=== PATIENT | male | born 1950 | race Caucasian/White ===

== ENCOUNTER 2020-11-04 08:07 | Emergency (ER) | payer MEDICARE, MEDICAID ==
[~2020-11-04] VITALS: Ht 170 cm; Wt 87.5 kg
[~2020-11-04 08:07] MED LIST: ARPZ10T; DCS100C; FLUO20CA42; FNST5T; GEMF600T3; MAGN-47; OLAN15TA3; TMSL.4C
--- NOTE | 2020-11-04 08:43 | ED Abdominal Pain ---
General Chief Complaint: Abdominal/GI Problems Stated Complaint: ABD PAIN/DISTENED,WEAKNESS Nursing Triage Note: pt presents to ed via pov accompanied by staff for complaints of increased gen weakness and abdominal pain, and abdominal distention. Source of Information: Patient, Caregiver, Old Records Exam Limitations: No Limitations History of Present Illness Date Seen by Provider: Nov 04, 2020 Time Seen by Provider: 08:15 Initial Comments This 70-year-old gentleman is a client of [employer] and presents with a staff member with chief complaint of abdominal pain and distention. Symptoms have been present for 1 to 2 days. He normally has a bowel movement daily but did not have 1 last night. He complains of pain in the lower abdomen. He has communication deficits due to his intellectual disability. There has been no vomiting, diarrhea, fever, respiratory complaints, etc. He has been vaccinated for COVID-19 and staff has no concerns about potential Covid infection. He does have a history of urinary hesitancy and constipation. Staff reports he seemed disoriented upon waking this morning. He normally does not communicate conversationally due to his intellectual disabilities and would not be able to report a reliable history even when feeling well according to staff. Allergies and Home Medications Allergies Coded Allergies: ibuprofen (Unverified Allergy, Mild, 06/04/09) Patient Home Medication List Home Medication List Reviewed: Yes Aripiprazole (Abilify 10 Mg) 10 Mg Tab, (Reported) Entered as Reported by: TEJINDER IRAHETA on 06/04/092011 Docusate Sodium (Colace) 100 Mg Capsule, (Reported) Entered as Reported by: TEJINDER IRAHETA on 06/04/092012 Finasteride (Proscar) 5 Mg Tab, (Reported) Entered as Reported by: TEJINDER IRAHETA on 06/04/092010 Fluoxetine Hcl (Prozac) 20 Mg Capsule, (Reported) Entered as Reported by: TEJINDER IRAHETA on 06/04/092012 Gemfibrozil (Gemfibrozil) 600 Mg Tablet, (Reported) Entered as Reported by: TEJINDER IRAHETA on 06/04/092012 Magnesium Hydroxide (Milk Of Magnesia) 400 Mg/5 Ml Oral.susp, (Reported) Entered as Reported by: TEJINDER IRAHETA on 06/04/092013 Olanzapine (Zyprexa) 15 Mg Tablet, (Reported) Entered as Reported by: TEJINDER IRAHETA on 06/04/092011 Tamsulosin Hcl (Flomax) 0.4 Mg Cap, (Reported) Entered as Reported by: TEJINDER IRAHETA on 06/04/092011 Review of Systems Review of Systems Constitutional: no symptoms reported EENTM: No Symptoms Reported Respiratory: No Symptoms Reported Cardiovascular: No Symptoms Reported Gastrointestinal: See HPI Genitourinary: See HPI Musculoskeletal: no symptoms reported Skin: no symptoms reported Psychiatric/Neurological: See HPI Endocrine: No Symptoms Reported Hematologic/Lymphatic: No Symptoms Reported Past Hmqekhx-Oghwzm-Djstyp Hx Patient Social History Tobacco Use?: No Substance use?: No Alcohol Use?: No Pt feels they are or have been: No Immunizations Up To Date Second COVID19 Vaccination Kvng: may 06 COVID19 Vaccine Value Advisor: malik Past Medical History Surgery/Hospitalization HX: pmh:urine retention, high chol, depression, anxiety, Surgeries: No Respiratory: No Cardiac: Yes High Cholesterol Neurological: Yes (Intellectual disability) Developmental Disorder Genitourinary: Yes (Urinary retention) Gastrointestinal: No Musculoskeletal: No Endocrine: No HEENT: No Cancer: No Did You Recieve Any Treatments: No Psychosocial: Yes Sleep Difficulties, Anxiety, Depression Integumentary: No Physical Exam Vital Signs Vital Signs - First Documented 11/04/20 08:16 Temp 36.0 Pulse 85 Resp 18 B/P (MAP) 157/90 (112) Pulse Ox 95 Capillary Refill : Less Than 3 Seconds Height/Weight/BMI Height: '" Weight: lbs. oz. kg; 30.00 BMI Method:Stated General Appearance: WD/WN, mild distress, other (Lying still on the bed. Avoiding interaction. Alert. No active distress) HEENT: normal ENT inspection, other (Would not open mouth for exam) Neck: normal inspection Respiratory: lungs clear, normal breath sounds, no respiratory distress Cardiovascular: regular rate, rhythm, no edema, no murmur Gastrointestinal: normal bowel sounds, distended (Slightly firm); No guarding; tenderness (Lower abdomen) Extremities: normal inspection, no pedal edema Neurologic/Psychiatric: supervisor of guidance and testing II-XII nml as tested, no motor/sensory deficits, alert Skin: normal color, warm/dry Progress/Results/Core Measures Results/Orders Lab Results Laboratory Tests Test 11/04/20 08:04 11/04/20 08:17 11/04/20 09:05 Range/Units Sodium Level 144 135-145 MMOL/L Potassium Level 4.0 3.6-5.0 MMOL/L Chloride Level 110 H 98-107 MMOL/L Carbon Dioxide Level 19 L 21-32 MMOL/L Anion Gap 15 H 5-14 MMOL/L Blood Urea Nitrogen 15 7-18 MG/DL Creatinine 0.95 0.60-1.30 MG/DL Estimat Glomerular Filtration Rate 79 BUN/Creatinine Ratio 16 Glucose Level 107 H 70-105 MG/DL Calcium Level 9.5 8.5-10.1 MG/DL Corrected Calcium 9.3 8.5-10.1 MG/DL Total Bilirubin 0.4 0.1-1.0 MG/DL Aspartate Amino Transf (AST/SGOT) 19 5-34 U/L Alanine Aminotransferase (ALT/SGPT) 20 0-55 U/L Alkaline Phosphatase 77 40-136 U/L C-Reactive Protein High Sensitivity 0.50 0.00-0.50 MG/DL Total Protein 7.7 6.4-8.2 GM/DL Albumin 4.3 3.2-4.5 GM/DL Lipase 45 8-78 U/L White Blood Count 8.3 4.3-11.0 10^3/uL Red Blood Count 5.10 4.30-5.52 10^6/uL Hemoglobin 14.0 13.3-17.7 g/dL Hematocrit 45 40-54 % Mean Corpuscular Volume 89 80-99 fL Mean Corpuscular Hemoglobin 28 25-34 pg Mean Corpuscular Hemoglobin Concent 31 L 32-36 g/dL Red Cell Distribution Width 15.1 H 10.0-14.5 % Platelet Count 262 130-400 10^3/uL Mean Platelet Volume 9.3 9.0-12.2 fL Immature Granulocyte % (Auto) 1 % Neutrophils (%) (Auto) 73 42-75 % Lymphocytes (%) (Auto) 19 12-44 % Monocytes (%) (Auto) 5 0-12 % Eosinophils (%) (Auto) 2 0-10 % Basophils (%) (Auto) 1 0-10 % Neutrophils # (Auto) 6.0 1.8-7.8 10^3/uL Lymphocytes # (Auto) 1.6 1.0-4.0 10^3/uL Monocytes # (Auto) 0.4 0.0-1.0 10^3/uL Eosinophils # (Auto) 0.2 0.0-0.3 10^3/uL Basophils # (Auto) 0.1 0.0-0.1 10^3/uL Immature Granulocyte # (Auto) 0.0 0.0-0.1 10^3/uL Urine Color YELLOW Urine Clarity CLEAR Urine pH 6.0 5-9 Urine Specific Lyons >=1.030 1.016-1.022 Urine Protein NEGATIVE NEGATIVE Urine Glucose (UA) NEGATIVE NEGATIVE Urine Ketones NEGATIVE NEGATIVE Urine Nitrite NEGATIVE NEGATIVE Urine Bilirubin NEGATIVE NEGATIVE Urine Urobilinogen 0.2 < = 1.0 MG/DL Urine Leukocyte Esterase NEGATIVE NEGATIVE Urine RBC (Auto) NEGATIVE NEGATIVE Urine RBC NONE /HPF Urine WBC NONE /HPF Urine Squamous Epithelial Cells RARE /HPF Urine Crystals NONE /LPF Urine Bacteria NEGATIVE /HPF Urine Casts NONE /LPF Urine Mucus NEGATIVE /LPF Urine Culture Indicated NO My Orders Orders - VICKY MCFARLAND MD Ua Culture If Indicated (11/04/20 08:35) Bladder Scan (11/04/20 08:35) Cbc With Automated Diff (11/04/20 08:45) Comprehensive Metabolic Panel (11/04/20 08:45) Hs C Reactive Protein (11/04/20 08:45) Lipase (11/04/20 08:45) Ed Iv/Invasive Line Start (11/04/20 08:45) Ns Iv 1000 Ml (Sodium Chloride 0.9%) (11/04/20 09:30) Ct Abdomen/Pelvis W (11/04/20 09:26) Iohexol Injection (Omnipaque 350 Mg/Ml 1 (11/04/20 09:45) Received Contrast (Hold Metformin- Contr (11/04/20 09:45) Ns (Ivpb) (Sodium Chloride 0.9% Ivpb Bag (11/04/20 09:45) Ct Abdomen/Pelvis Wo (11/04/20 11:43) Diatrizoate Meglum/Sodium 37% (Gastrogra (11/04/20 12:45) Fentanyl Inj (Sublimaze Injection) (11/04/20 14:45) Fentanyl Inj (Sublimaze Injection) (11/04/20 17:15) Medications Given in ED Current Medications Medications Dose Ordered Sig/Lauren Route Start Time Stop Time Status Last Admin Dose Admin Diatrizoate Meglum/ Diatrizoate Sod 120 ml ONCE ONCE RC 11/04/20 12:45 11/04/20 12:46 DC 11/04/20 12:54 30 ML Fentanyl Citrate 50 mcg ONCE ONCE IVP 11/04/20 14:45 11/04/20 14:46 DC 11/04/20 15:47 50 MCG Fentanyl Citrate 50 mcg ONCE ONCE IVP 11/04/20 17:15 11/04/20 17:16 DC 11/04/20 17:34 50 MCG Iohexol 100 ml ONCE ONCE IV 11/04/20 09:45 11/04/20 09:51 DC 11/04/20 10:22 100 ML Sodium Chloride 100 ml ONCE ONCE IV 11/04/20 09:45 11/04/20 09:51 DC 11/04/20 10:22 80 ML Vital Signs/I&O 11/04/20 11/04/20 08:16 17:50 Temp 36.0 Pulse 85 95 Resp 18 16 B/P (MAP) 157/90 (112) 145/80 Pulse Ox 95 98 Blood Pressure Mean: 112 Progress Progress Note #1: Time: 08:44 Progress Note Bladder scan revealed only 65 mL of urine. He does not appear to be experiencing urinary retention. We will proceed with abdominal pain work-up with labs and probable imaging. Progress Note #2: Time: 16:[address] scan demonstrated an unusual appearance to the sigmoid colon with spasm or narrowing and extension of the sigmoid colon into the right upper quadrant. I discussed the situation with Dr. Dunn (Dr. Quezada was not immediately available). I also discussed the imaging results with Dr. Alicia. We determined there should be further evaluation with repeat CT scan with rectal contrast. This was obtained and showed a patent sigmoid colon with no obstruction or volvulus. The sigmoid change position medially as well. We were attempting to discharge the patient but he would not get up and walk. He simply falls back over in pain when he attempts to stand up. He complains of mid abdominal pain. He was treated with fentanyl and again we attempted to stand him up. His response was unchanged. At this point we will admit for supportive care and bowel regimen. Transfer to [facility] to divert away from Covid patients to a lower acuity facility is appropriate. [facility] staff are agreeable to this plan. Dr. Quezada and Dr. Blackmon are agreeable. Diagnostic Imaging Diagonstic Imaging: CT Plain Films/CT/US/NM/MRI: abdomen, pelvis Comments CT scan reviewed by me and report reviewed. Discussed with the radiologist. See report below: NAME: EVANS VINSON [facility] REC#: [id number] PT STATUS: REG ER : 1950 PHYSICIAN: VICKY MCFARLAND MD ADMIT DATE: 11/04/20/ER Signed Date of Exam:11/04/20 CT ABDOMEN/PELVIS W PROCEDURE: CT abdomen and pelvis with contrast. TECHNIQUE: Multiple contiguous axial images were obtained through the abdomen and pelvis after administration of intravenous contrast. Auto Exposure Controls were utilized during the CT exam to meet ALARA standards for radiation dose reduction. All CT scans use one or more of the following dose optimizing techniques: automated exposure control, MA and/or KvP adjustment based on patient size and exam type or iterative reconstruction. INDICATION: Increasing weakness and abdominal pain and distention. COMPARISON: No prior studies are available for comparison. FINDINGS: Lung bases are clear. No discrete liver mass is detected. Gallbladder is unremarkable. There is no biliary ductal dilatation. Pancreas and spleen are unremarkable. No adrenal mass is detected. Kidneys are unremarkable. Aorta is nonaneurysmal. The sigmoid does show some gaseous distention and is located in the right upper quadrant however no definite twisting or swirling of the mesentery is seen to suggest volvulus. No bowel wall thickening is seen. There is moderate stool in the colon. Small bowel is nondistended. There is no ascites or fluid collection. There is no free air. The bladder is decompressed by Cotter catheter. There is a left inguinal fat-containing hernia. IMPRESSION: There is some distention of the sigmoid which is located in the right upper quadrant. No definite CT evidence of sigmoid volvulus is seen. There is moderate stool, consistent with constipation. Dictated by: Dictated on workstation # [id number] Dict: 11/04/20 1031 Trans: 11/04/20 1537 [id number] [id number] Interpreted by: BRAULIO ALICIA MD Electronically signed by: BRAULIO ALICIA MD 11/04/20 1537 Diagonstic Imaging: CT Plain Films/CT/US/NM/MRI: abdomen, pelvis Comments CT abdomen and pelvis with rectal contrast viewed by me and report reviewed. See report below: NAME: EVANS VINSON [facility] REC#: [id number] PT STATUS: REG ER : 1950 PHYSICIAN: VICKY MCFARLAND MD ADMIT DATE: 11/04/20/ER Signed Date of Exam:11/04/20 CT ABDOMEN/PELVIS WO PROCEDURE: CT abdomen and pelvis without contrast. TECHNIQUE: Multiple contiguous axial images were obtained through the abdomen and pelvis without the use of intravenous contrast. Auto Exposure Controls were utilized during the CT exam to meet ALARA standards for radiation dose reduction. INDICATION: Questionable sigmoid narrowing. Study is performed for further evaluation. COMPARISON: Correlation is made with CT study performed earlier the same day. FINDINGS: The rectum and sigmoid appear to be widely patent. There is significant redundancy to the sigmoid, which is located in the upper abdomen but no definite bowel wall thickening or evidence of volvulus is seen. The more proximal portion of the sigmoid colon near the junction with the descending colon is completely decompressed. There is no evidence of dilatation proximal to the dilated sigmoid segments. No pneumatosis is seen. The ascending, transverse, and descending colon are normal in caliber. The small bowel is normal in caliber as well. There is no free fluid. There is no free air. Liver, gallbladder, pancreas, spleen, adrenal glands, and kidneys are stable. Aorta is nonaneurysmal. IMPRESSION: Dilated and redundant sigmoid colon, located in the upper abdomen. No volvulus is detected. Dictated by: Dictated on workstation # [id number] Dict: 11/04/20 1253 Trans: 11/04/20 1537 AS6 [id number] Interpreted by: BRAULIO ALICIA MD Electronically signed by: BRAULIO ALICIA MD 11/04/20 1537 Departure Impression Primary Impression: Constipation Qualified Codes: K59.00 - Constipation, unspecified Additional Impressions: Colon distention Abdominal pain Qualified Codes: R10.84 - Generalized abdominal pain Disposition: [facility] HOSP Condition: Stable Transfer Transfer Reason: Diversion Time Spoke to Accepting Phy: 16:40 Transfer Time: 17:50 Transfer Facility: [facility] Method of Transfer: Private Vehicle Departure-Patient Inst. Referrals: WADE ALEJANDRO DO (PCP/Family) Primary Care Physician Copy Copies To 1: WADE ALEJANDRO JOSHUA T MD Nov 04, 2020 08:43
[2020-11-04 09:06] LABS: BASOPHILS # (AUTO) 0.1 10^3/uL (0.0-0.1); BASOPHILS % (AUTO) 1 % (0-10); EOSINOPHILS # (AUTO) 0.2 10^3/uL (0.0-0.3); EOSINOPHILS % (AUTO) 2 % (0-10); HEMATOCRIT 45 % (40-54); LYMPHOCYTES # (AUTO) 1.6 10^3/uL (1.0-4.0); LYMPHOCYTES % (AUTO) 19 % (12-44); MEAN CORPUSCULAR HEMOGLOBIN 28 pg (25-34); MEAN CORPUSCULAR HGB CONC 31 g/dL (32-36); MEAN CORPUSCULAR VOLUME 89 fL (80-99); MEAN PLATELET VOLUME 9.3 fL (9.0-12.2); MONOCYTES # (AUTO) 0.4 10^3/uL (0.0-1.0); MONOCYTES % (AUTO) 5 % (0-12); NEUTROPHILS % (AUTO) 73 % (42-75); PLATELET COUNT 262 10^3/uL (130-400); WHITE BLOOD COUNT 8.3 10^3/uL (4.3-11.0)
[2020-11-04 09:10] LABS: ALBUMIN 4.3 GM/DL (3.2-4.5)
[2020-11-04 09:12] LABS: CALCIUM 9.5 MG/DL (8.5-10.1)
[2020-11-04 09:13] LABS: TOTAL PROTEIN 7.7 GM/DL (6.4-8.2)
[2020-11-04 09:15] LABS: BILIRUBIN,TOTAL 0.4 MG/DL (0.1-1.0)
[2020-11-04 09:17] LABS: CREATININE SERUM 0.95 MG/DL (0.60-1.30)
[2020-11-04] MEDS ORDERED: NS IV 1000 ML 1,000 ML IV SCH (09:30)
[2020-11-04] MEDS ORDERED: NS 100 ML (IVPB) BAG IV ONE (09:45)
[2020-11-04] MEDS ORDERED: HOLD METFORMIN - RECEIVED CONTRAST 20 ML VIAL IV SCH (09:45)
[2020-11-04] MEDS ORDERED: IOHEXOL 350 MG/ML 100 ML (OMNIPAQUE 350) VIAL IV ONE (09:45)
[2020-11-04 09:50] LABS: BILIRUBIN,URINE NEGATIVE (NEGATIVE); CLARITY,URINE CLEAR; COLOR,URINE YELLOW; GLUCOSE, URINE (UA) NEGATIVE (NEGATIVE); KETONES,URINE NEGATIVE (NEGATIVE); LEUKOCYTE ESTERASE ,URINE NEGATIVE (NEGATIVE); NITRITE,URINE NEGATIVE (NEGATIVE); PROTEIN,URINE NEGATIVE (NEGATIVE)
[2020-11-04 09:57] LABS: BACTERIA,URINE NEGATIVE /HPF; SQUAMOUS EPITHELIAL CELL,UR RARE /HPF
--- NOTE | 2020-11-04 10:43 | Diagnostic Imaging Report ---
PROCEDURE: CT abdomen and pelvis with contrast. TECHNIQUE: Multiple contiguous axial images were obtained through the abdomen and pelvis after administration of intravenous contrast. Auto Exposure Controls were utilized during the CT exam to meet ALARA standards for radiation dose reduction. All CT scans use one or more of the following dose optimizing techniques: automated exposure control, MA and/or KvP adjustment based on patient size and exam type or iterative reconstruction. INDICATION: Increasing weakness and abdominal pain and distention. COMPARISON: No prior studies are available for comparison. FINDINGS: Lung bases are clear. No discrete liver mass is detected. Gallbladder is unremarkable. There is no biliary ductal dilatation. Pancreas and spleen are unremarkable. No adrenal mass is detected. Kidneys are unremarkable. Aorta is nonaneurysmal. The sigmoid does show some gaseous distention and is located in the right upper quadrant however no definite twisting or swirling of the mesentery is seen to suggest volvulus. No bowel wall thickening is seen. There is moderate stool in the colon. Small bowel is nondistended. There is no ascites or fluid collection. There is no free air. The bladder is decompressed by Cotter catheter. There is a left inguinal fat-containing hernia. IMPRESSION: There is some distention of the sigmoid which is located in the right upper quadrant. No definite CT evidence of sigmoid volvulus is seen. There is moderate stool, consistent with constipation. Dictated by: Dictated on workstation # [id number]
[2020-11-04] MEDS ORDERED: DIATRIZOATE MEGLUM/SODIUM 37% 120 ML (GASTROGRAFIN) RC ONE (12:45)
--- NOTE | 2020-11-04 13:38 | Diagnostic Imaging Report ---
PROCEDURE: CT abdomen and pelvis without contrast. TECHNIQUE: Multiple contiguous axial images were obtained through the abdomen and pelvis without the use of intravenous contrast. Auto Exposure Controls were utilized during the CT exam to meet ALARA standards for radiation dose reduction. INDICATION: Questionable sigmoid narrowing. Study is performed for further evaluation. COMPARISON: Correlation is made with CT study performed earlier the same day. FINDINGS: The rectum and sigmoid appear to be widely patent. There is significant redundancy to the sigmoid, which is located in the upper abdomen but no definite bowel wall thickening or evidence of volvulus is seen. The more proximal portion of the sigmoid colon near the junction with the descending colon is completely decompressed. There is no evidence of dilatation proximal to the dilated sigmoid segments. No pneumatosis is seen. The ascending, transverse, and descending colon are normal in caliber. The small bowel is normal in caliber as well. There is no free fluid. There is no free air. Liver, gallbladder, pancreas, spleen, adrenal glands, and kidneys are stable. Aorta is nonaneurysmal. IMPRESSION: Dilated and redundant sigmoid colon, located in the upper abdomen. No volvulus is detected. Dictated by: Dictated on workstation # [id number]
[2020-11-04] MEDS ORDERED: fentaNYL INJ 100 MCG/2 ML AMP IVP ONE ×2 (14:45→17:15)
[2020-11-04 17:50] VITALS: BP 145/80
== END 2020-11-04 17:50 | disposition short-term general hospital (02) ==
LOC: EDUNIT# 08:07 → ER 08:10
DX: K59.00 Constipation, unspecified (principal); K63.89 Other specified diseases of intestine; E78.00 Pure hypercholesterolemia, unspecified; F41.9 Anxiety disorder, unspecified; F32.9 Major depressive disorder, single episode, unspecified; Z79.899 Other long term (current) drug therapy
CPT/HCPCS: 36415; 74176; 74177; 80053; 81000; 83690; 85025; 86141; 96361; 96374; 96376

== ENCOUNTER → 2020-11-24 | Outpatient (CLI) | payer MEDICARE, MEDICAID ==
--- NOTE | 2020-11-24 13:52 | Diagnostic Imaging Report ---
INDICATION: Back and hip pain. COMPARISON: None. FINDINGS: AP view of the pelvis and 2 dedicated radiographic views of the left hip were obtained. There is no fracture, dislocation, bone destruction, or radiopaque foreign body. Note is made of benign-appearing bone island in the junction of the left femoral head and neck The visualized pelvic osseous structures and the SI joints demonstrate no acute fracture or dislocation. There is no bone destruction or radiopaque foreign body. The surrounding soft tissue structures are unremarkable. IMPRESSION: 1. No acute fracture or dislocation in the pelvis or left hip. Dictated by: Dictated on workstation # [id number]
== END ==
LOC: RAD 12:01
PROVIDERS: ATTEND Family Medicine
DX: M25.552 Pain in left hip (principal)

== ENCOUNTER 2020-12-07 09:24 | Outpatient (RCR) | payer MEDICARE, MEDICAID | END 2021-01-05 11:20 | disposition home or self-care (01) | PROVIDERS: ATTEND Family Medicine | DX: R26.2 Difficulty in walking, not elsewhere classified (principal); R53.1 Weakness; R53.83 Other fatigue ==

== ENCOUNTER 2021-05-17 11:17 | Observation (INO) | payer MEDICARE, MEDICAID ==
[~2021-05-17] VITALS: Ht 170.2 cm; Wt 83.6 kg
[2021-05-17 11:58] LABS: BASOPHILS # (AUTO) 0.1 10^3/uL (0.0-0.1); BASOPHILS % (AUTO) 1 % (0-10); EOSINOPHILS # (AUTO) 0.2 10^3/uL (0.0-0.3); EOSINOPHILS % (AUTO) 3 % (0-10); HEMATOCRIT 41 % (40-54); LYMPHOCYTES # (AUTO) 1.3 10^3/uL (1.0-4.0); LYMPHOCYTES % (AUTO) 20 % (12-44); MEAN CORPUSCULAR HEMOGLOBIN 27 pg (25-34); MEAN CORPUSCULAR HGB CONC 32 g/dL (32-36); MEAN CORPUSCULAR VOLUME 86 fL (80-99); MEAN PLATELET VOLUME 9.3 fL (9.0-12.2); MONOCYTES # (AUTO) 0.3 10^3/uL (0.0-1.0); MONOCYTES % (AUTO) 5 % (0-12); NEUTROPHILS # (AUTO) 4.5 10^3/uL (1.8-7.8); NEUTROPHILS % (AUTO) 71 % (42-75); PLATELET COUNT 242 10^3/uL (130-400); WHITE BLOOD COUNT 6.4 10^3/uL (4.3-11.0)
[2021-05-17 12:08] LABS: ALBUMIN 3.9 GM/DL (3.2-4.5); POTASSIUM 4.3 MMOL/L (3.6-5.0)
[2021-05-17 12:10] LABS: CALCIUM 9.3 MG/DL (8.5-10.1)
[2021-05-17 12:11] LABS: TOTAL PROTEIN 6.7 GM/DL (6.4-8.2)
[2021-05-17 12:12] LABS: BILIRUBIN,TOTAL 0.6 MG/DL (0.1-1.0)
[2021-05-17 12:14] LABS: CREATININE SERUM 0.83 MG/DL (0.60-1.30)
--- NOTE | 2021-05-17 12:17 | ED General ---
General Chief Complaint: Altered Mental Status Stated Complaint: AMS Nursing Triage Note: PT AMB TO [facility] 6 WITH COMPLAINT OF ALT MENTAL STATUS. WENT TO DR TORREZ AND WAS SENT TO ER FOR FURTHER EVALUATION. Source of Information: Patient, Caregiver, Old Records Exam Limitations: No Limitations History of Present Illness Date Seen by Provider: May 17, 2021 Time Seen by Provider: 11:20 Initial Comments This is 71-year-old gentleman is a client of [place] he was brought to the emergency room by a staff member for reasons of altered mental status and apparent lethargy. He is normally verbal but cannot communicate in discernible language. Today he has been minimally verbal. He is also normally active and today has been minimally active. He is not following instructions for this provider which staff says is unusual for him. It is unclear if he is in any pain. He has been ambulatory this morning and walked to the exam room. Staff reports he may be listing a little bit when he walks but is able to walk independently. Review of his medical record notes that his dose of clonazepam was recently increased from 0.5 mg to 1 mg on May 01. It is also noted that he takes olanzapine and or aripiprazole. Doses of those 2 medications have not changed. Staff also notes he has a history of urinary retention. Allergies and Home Medications Allergies Coded Allergies: ibuprofen (Unverified Allergy, Mild, 06/04/09) Patient Home Medication List Home Medication List Reviewed: Yes Aripiprazole (Abilify 10 Mg) 10 Mg Tab, (Reported) Entered as Reported by: TEJINDER IRAHETA on 06/04/092011 Docusate Sodium (Colace) 100 Mg Capsule, (Reported) Entered as Reported by: TEJINDER IRAHETA on 06/04/092012 Finasteride (Proscar) 5 Mg Tab, (Reported) Entered as Reported by: TEJINDER IRAHETA on 06/04/092010 Fluoxetine Hcl (Prozac) 20 Mg Capsule, (Reported) Entered as Reported by: TEJINDER IRAHETA on 06/04/092012 Gemfibrozil (Gemfibrozil) 600 Mg Tablet, (Reported) Entered as Reported by: TEJINDER IRAHETA on 06/04/092012 Magnesium Hydroxide (Milk Of Magnesia) 400 Mg/5 Ml Oral.susp, (Reported) Entered as Reported by: TEJINDER IRAHETA on 06/04/092013 Olanzapine (Zyprexa) 15 Mg Tablet, (Reported) Entered as Reported by: TEJINDER IRAHETA on 06/04/092011 Tamsulosin Hcl (Flomax) 0.4 Mg Cap, (Reported) Entered as Reported by: TEJINDER IRAHETA on 06/04/092011 Review of Systems Review of Systems Constitutional: see HPI EENTM: no symptoms reported Respiratory: no symptoms reported Cardiovascular: no symptoms reported Gastrointestinal: no symptoms reported Genitourinary: see HPI Musculoskeletal: no symptoms reported Skin: no symptoms reported Psychiatric/Neurological: See HPI Hematologic/Lymphatic: No Symptoms Reported Immunological/Allergic: no symptoms reported Past Jodatzy-Ugwczt-Yzkrsy Hx Patient Social History Tobacco Use?: No Use of E-Cig and/or Vaping dev: No Substance use?: No Alcohol Use?: No Pt feels they are or have been: No Immunizations Up To Date Influenza Vaccine Up-to-Date: Yes; Up-to-Date First/Initial COVID19 Vaccinat: may 06 COVID19 Vaccination Kvng: may 06 COVID19 Vaccination Date: may 06 Past Medical History Surgery/Hospitalization HX: pmh:urine retention, high chol, depression, anxiety, Surgeries: No Respiratory: No Cardiac: Yes High Cholesterol Neurological: Yes (Intellectual disability) Developmental Disorder Genitourinary: Yes (Urinary retention) Prostate Problems Gastrointestinal: No Musculoskeletal: No Endocrine: Yes Hypothyroidsim HEENT: No Cancer: No Did You Recieve Any Treatments: No Psychosocial: Yes Sleep Difficulties, Anxiety, Depression Integumentary: No Physical Exam Vital Signs Vital Signs - First Documented 05/17/21 11:37 Temp 36.1 Pulse 73 Resp 12 B/P (MAP) 124/79 (94) Pulse Ox 92 O2 Delivery Room Air Capillary Refill : Less Than 3 Seconds Height, Weight, BMI Height: '" Weight: lbs. oz. kg; 30.00 BMI Method:Stated General Appearance: No Apparent Distress, WD/WN, Other (Appears lethargic) HEENT: PERRL/EOMI, TMs Normal (Partially obscured by cerumen, especially on the right), Normal ENT Inspection, Other (Mucous membranes moist) Neck: Normal Inspection Respiratory: Lungs Clear, Normal Breath Sounds, No Accessory Muscle Use Cardiovascular: Regular Rate, Rhythm, No Edema, No Murmur Gastrointestinal: Normal Bowel Sounds, Non Tender, Soft Extremity: Normal Inspection, No Pedal Edema Neurologic/Psychiatric: Alert, Other (Neuro exam is difficult as he does not follow instructions. He appears to be moving all 4 extremities. There is no obvious focal motor deficit. He is not verbalizing other than an occasional moan or groan during my interaction with him.) Skin: Normal Color, Warm/Dry Progress/Results/Core Measures Suspected Sepsis SIRS Temperature: Pulse: 73 Respiratory Rate: 12 Laboratory Tests 05/17/21 11:44: White Blood Count 6.4 Blood Pressure 124 /79 Mean: 94 Laboratory Tests 05/17/21 11:44: Creatinine 0.83, Platelet Count 242, Total Bilirubin 0.6 Results/Orders Lab Results Laboratory Tests Test 05/17/21 11:44 05/17/21 11:49 05/17/21 12:47 Range/Units White Blood Count 6.4 4.3-11.0 10^3/uL Red Blood Count 4.75 4.30-5.52 10^6/uL Hemoglobin 13.0 L 13.3-17.7 g/dL Hematocrit 41 40-54 % Mean Corpuscular Volume 86 80-99 fL Mean Corpuscular Hemoglobin 27 25-34 pg Mean Corpuscular Hemoglobin Concent 32 32-36 g/dL Red Cell Distribution Width 15.0 H 10.0-14.5 % Platelet Count 242 130-400 10^3/uL Mean Platelet Volume 9.3 9.0-12.2 fL Immature Granulocyte % (Auto) 0 % Neutrophils (%) (Auto) 71 42-75 % Lymphocytes (%) (Auto) 20 12-44 % Monocytes (%) (Auto) 5 0-12 % Eosinophils (%) (Auto) 3 0-10 % Basophils (%) (Auto) 1 0-10 % Neutrophils # (Auto) 4.5 1.8-7.8 10^3/uL Lymphocytes # (Auto) 1.3 1.0-4.0 10^3/uL Monocytes # (Auto) 0.3 0.0-1.0 10^3/uL Eosinophils # (Auto) 0.2 0.0-0.3 10^3/uL Basophils # (Auto) 0.1 0.0-0.1 10^3/uL Immature Granulocyte # (Auto) 0.0 0.0-0.1 10^3/uL Sodium Level 137 135-145 MMOL/L Potassium Level 4.3 3.6-5.0 MMOL/L Chloride Level 106 98-107 MMOL/L Carbon Dioxide Level 19 L 21-32 MMOL/L Anion Gap 12 5-14 MMOL/L Blood Urea Nitrogen 13 7-18 MG/DL Creatinine 0.83 0.60-1.30 MG/DL Estimat Glomerular Filtration Rate 94 BUN/Creatinine Ratio 16 Glucose Level 91 70-105 MG/DL Calcium Level 9.3 8.5-10.1 MG/DL Corrected Calcium 9.4 8.5-10.1 MG/DL Total Bilirubin 0.6 0.1-1.0 MG/DL Aspartate Amino Transf (AST/SGOT) 25 5-34 U/L Alanine Aminotransferase (ALT/SGPT) 17 0-55 U/L Alkaline Phosphatase 85 40-136 U/L C-Reactive Protein High Sensitivity 1.10 H 0.00-0.50 MG/DL Total Protein 6.7 6.4-8.2 GM/DL Albumin 3.9 3.2-4.5 GM/DL TSH [place] Testing 1.86 0.35-4.94 UIU/ML Thyroid Stimulating Hormone (TSH) 1.84 0.35-4.94 UIU/ML Free Thyroxine 0.95 0.70-1.48 NG/DL Urine Color YELLOW Urine Clarity SL CLOUDY Urine pH 6.0 5-9 Urine Specific Pierce 1.025 H 1.016-1.022 Urine Protein NEGATIVE NEGATIVE Urine Glucose (UA) NEGATIVE NEGATIVE Urine Ketones NEGATIVE NEGATIVE Urine Nitrite POSITIVE H NEGATIVE Urine Bilirubin NEGATIVE NEGATIVE Urine Urobilinogen 0.2 < = 1.0 MG/DL Urine Leukocyte Esterase TRACE H NEGATIVE Urine RBC (Auto) NEGATIVE NEGATIVE Urine RBC NONE /HPF Urine WBC RARE /HPF Urine Squamous Epithelial Cells NONE /HPF Urine Crystals NONE /LPF Urine Bacteria LARGE H /HPF Urine Casts NONE /LPF Urine Mucus NEGATIVE /LPF Urine Culture Indicated YES My Orders Orders - VICKY MCFARLAND MD Cbc With Automated Diff (05/17/21 11:20) Comprehensive Metabolic Panel (05/17/21 11:20) Hs C Reactive Protein (05/17/21 11:20) Thyroid Analyzer (05/17/21 11:20) Ua Culture If Indicated (05/17/21 11:20) Ed Iv/Invasive Line Start (05/17/21 11:20) Thyroid Stimulating Hormone (05/17/21 11:55) Free T4 (Free Thyroxine) (05/17/21 11:55) Cotter Cath (05/17/21 11:55) Urine Culture (05/17/21 12:47) Ct Head Wo (05/17/21 13:16) Ceftriaxone 1 Gm Pre-Mix (Rocephin 1 Gm (05/17/21 13:58) Vital Signs/I&O 05/17/21 11:37 Temp 36.1 Pulse 73 Resp 12 B/P (MAP) 124/79 (94) Pulse Ox 92 O2 Delivery Room Air Capillary Refill : Less Than 3 Seconds Blood Pressure Mean: 94 Progress Note : Time: 14:10 Progress Note Cotter catheter was inserted to evaluate for urinary retention and obtain a clean urine specimen. There is suspicion of urinary tract infection based on urinalysis. Approximately 1000 mL of urine was drained from the bladder. This would suggest significant urinary retention. Labs were relatively unremarkable. I suspect his altered mental status is multifactorial with contributing factors including urinary retention, urinary tract infection, and medication effect. I discussed the case with Dr. Alejandro who requested that the patient be admitted for observation at least tonight to ensure some stability and hopefully improvement before he goes back to [place]. Staff member with the patient is agreeable to this. Patient has full CODE STATUS on his MAR from [place]. Case was reviewed with Dr. Romeo who is agreeable to admission. Rocephin is being administered before admitting. Diagnostic Imaging Diagonstic Imaging: CT Plain Films/CT/US/NM/MRI: head Comments CT head viewed by me and report reviewed. See report below: NAME: [facility] REC#: [id number] PT STATUS: REG ER : 1950 PHYSICIAN: VICKY MCFARLAND MD ADMIT DATE: 05/17/21/ER Draft Date of Exam:05/17/21 CT HEAD WO PROCEDURE: CT head without contrast. TECHNIQUE: Multiple contiguous axial images were obtained through the brain without the use of intravenous contrast. Auto Exposure Controls were utilized during the CT exam to meet ALARA standards for radiation dose reduction. DATE: May 17, 2021. COMPARISON: None. INDICATION: 71-year-old male, altered mental status. FINDINGS: The ventricles and cerebral spinal fluid spaces are of normal size and configuration for the patient's age. There is no mass effect or midline shift. There is no acute intracranial hemorrhage. There is no abnormal extra-axial fluid collection. The visualized portions of the paranasal sinuses, mastoid air cells and middle ears are well aerated. IMPRESSION: 1. No identified acute intracranial abnormality. Dictated on workstation # [id number] Dict: 05/17/21 1338 Trans: 05/17/21 1344 CV [id number] Interpreted by: SAVANNAH GARCIA MD Departure Communication (Admissions) Time/Spoke to Admitting Phy: 14:10 Dr. Romeo Impression Primary Impression: AMS (altered mental status) Qualified Codes: R41.82 - Altered mental status, unspecified Additional Impressions: Urinary tract infection Qualified Codes: N39.0 - Urinary tract infection, site not specified Urinary retention Disposition: ADMITTED INPATIENT Condition: Stable Admissions Decision to Admit Reason: Admit from ER (General) Decision to Admit/Date: May 17, 2021 Time/Decision to Admit Time: 14:10 Departure-Patient Inst. Referrals: WADE LAEJANDRO DO (PCP/Family) Primary Care Physician VICKY MCFARLAND MD May 17, 2021 12:17
[2021-05-17 12:40] LABS: TSH (THYROID ANALYZER) 1.86 UIU/ML (0.35-4.94)
[2021-05-17 12:58] LABS: BILIRUBIN,URINE NEGATIVE (NEGATIVE); CLARITY,URINE SL CLOUDY; COLOR,URINE YELLOW; GLUCOSE, URINE (UA) NEGATIVE (NEGATIVE); KETONES,URINE NEGATIVE (NEGATIVE); LEUKOCYTE ESTERASE ,URINE TRACE (NEGATIVE); NITRITE,URINE POSITIVE (NEGATIVE); PROTEIN,URINE NEGATIVE (NEGATIVE)
[2021-05-17 13:05] LABS: BACTERIA,URINE LARGE /HPF; WBC,URINE RARE /HPF
[2021-05-17 13:20] LABS: FREE T4 (FREE THYROXINE) 0.95 NG/DL (0.70-1.48)
[2021-05-17] MEDS ORDERED: PROMETHAZINE INJ 25 MG/ML (PHENERGAN) AMP IVP ONE (13:45)
[2021-05-17] MEDS ORDERED: HYDROmorphone 2 MG/ML VIAL (DILAUDID) IV ONE (13:45)
--- NOTE | 2021-05-17 13:45 | Diagnostic Imaging Report ---
PROCEDURE: CT head without contrast. TECHNIQUE: Multiple contiguous axial images were obtained through the brain without the use of intravenous contrast. Auto Exposure Controls were utilized during the CT exam to meet ALARA standards for radiation dose reduction. DATE: May 17, 2021. COMPARISON: None. INDICATION: 71-year-old male, altered mental status. FINDINGS: The ventricles and cerebral spinal fluid spaces are of normal size and configuration for the patient's age. There is no mass effect or midline shift. There is no acute intracranial hemorrhage. There is no abnormal extra-axial fluid collection. The visualized portions of the paranasal sinuses, mastoid air cells and middle ears are well aerated. IMPRESSION: 1. No identified acute intracranial abnormality. Dictated by: Dictated on workstation # [id number]
[2021-05-17] MEDS ORDERED: cefTRIAXone 1 GM PRE-MIX 50 ML IV STA (13:58)
[2021-05-17] MEDS ORDERED: ANTACID SUSP 30 ML UDC (MYLANTA) PO PRN (14:45)
[2021-05-17] MEDS ORDERED: ONDANSETRON 4 MG/2 ML (SDV) Z0FRAN IV PRN (14:45)
[2021-05-17] MEDS ORDERED: PATIENT MAY USE OWN MEDS, ALL PO SCH (14:45)
[2021-05-17] MEDS ORDERED: MELATONIN 3 MG TABLET PO PRN (14:45)
[2021-05-17] MEDS ORDERED: polyethylene glycoL POWDER 17 GM (MIRALAX) PACK PO PRN (14:45)
[2021-05-17] MEDS ORDERED: ACETAMINOPHEN 325 MG TABLET PO PRN (14:45)
[2021-05-17] MEDS ORDERED: ONDANSETRON 4 MG (ZOFRAN) ORAL DISSOLVE TAB PO PRN (14:45)
[2021-05-17] MEDS ORDERED: WHEA98PO PO (15:45)
[2021-05-17] MEDS ORDERED: GUAI5SYR PO (15:45)
[2021-05-17] MEDS ORDERED: MAGN400O7 PO (15:45)
[2021-05-17] MEDS ORDERED: CALC200T33 PO (15:45)
[2021-05-17] MEDS ORDERED: OLAN10TA71 PO (15:45)
[2021-05-17] MEDS ORDERED: LEVO50TA6 PO (15:45)
[2021-05-17] MEDS ORDERED: POLY238P32 PO (15:45)
[2021-05-17] MEDS ORDERED: HYDR28CR18 TP (15:45)
[2021-05-17] MEDS ORDERED: MELA10TA2 PO (15:45)
[2021-05-17] MEDS ORDERED: ACET325C7 PO (15:45)
[2021-05-17] MEDS ORDERED: LOPE-175 PO (15:45)
[2021-05-17] MEDS ORDERED: FINA5TAB6 PO (15:45)
[2021-05-17] MEDS ORDERED: SERT-413 PO (15:45)
[2021-05-17] MEDS ORDERED: CLON1TAB13 PO (15:45)
[2021-05-17] MEDS ORDERED: MONT-40 PO (15:45)
[2021-05-17] MEDS ORDERED: LORA10TA7 PO (15:45)
[2021-05-17] MEDS ORDERED: BETH25TA2 PO (15:45)
[2021-05-17] MEDS ORDERED: TETR15DR49 OU (15:45)
[2021-05-17] MEDS ORDERED: SIMV10TA26 PO (15:45)
[2021-05-17] MEDS ORDERED: TMSL.4C PO (15:45)
[2021-05-17] MEDS ORDERED: DOCU100C37 PO (15:45)
[2021-05-17] MEDS ORDERED: ARIP10TA55 PO (15:45)
[2021-05-17 16:12] VITALS: BP 151/80
[2021-05-17] MEDS: BETHANECHOL 25 MG (URECHOLINE) TAB PO SCH ×2 (17:02→22:05)
[2021-05-17] MEDS ORDERED: TAMSULOSIN 0.4 MG (FLOMAX) CAP PO SCH (18:00)
[2021-05-17] MEDS ORDERED: LIDOCAINE UROJET 2% GEL 10 ML PKG TOP ONE (18:45)
[2021-05-17] MEDS ORDERED: LIDOCAINE UROJET 2% GEL 10 ML PKG ONE (18:48)
[2021-05-17 19:11] VITALS: BP 147/82
[2021-05-17] MEDS ORDERED: SIMvastatin 10 MG (ZOCOR) TAB PO SCH (21:00)
[2021-05-17] MEDS ORDERED: OLANZapine 5 MG (ZyPREXA) TAB PO SCH (21:00)
[2021-05-17] MEDS ORDERED: MONTELUKAST 10 MG (SINGULAIR) TAB PO SCH (21:00)
[2021-05-17] MEDS ORDERED: SERTRALINE 50 MG (ZOLOFT) TABLET PO SCH (21:00)
[2021-05-17] MEDS: clonazePAM 0.5 MG (KlonoPIN) TAB PO SCH (22:04)
[2021-05-17 23:10] VITALS: BP 122/79
[2021-05-18 03:47] VITALS: BP 113/72
[2021-05-18] MEDS: BETHANECHOL 25 MG (URECHOLINE) TAB PO SCH (06:17)
[2021-05-18] MEDS ORDERED: LEVOTHYROXINE 50 MCG (LEVOTHROID) TAB PO SCH (06:30)
[2021-05-18 07:49] VITALS: BP 125/77
[2021-05-18] MEDS ORDERED: cefTRIAXone 1 GM PRE-MIX 50 ML IV SCH (09:00)
[2021-05-18] MEDS ORDERED: FINASTERIDE (PROSCAR) 5 MG TAB PO SCH (09:00)
[2021-05-18] MEDS ORDERED: LORATADINE (CLARITIN) 10 MG TAB PO SCH (09:00)
[2021-05-18] MEDS: clonazePAM 0.5 MG (KlonoPIN) TAB PO SCH (09:09)
[2021-05-18] MEDS ORDERED: SULF1TAB38 PO (10:46)
[2021-05-18 12:21] VITALS: BP 125/77
[2021-05-18 12:22] VITALS: BP 125/77
[2021-05-18 12:54] VITALS: BP 144/87
--- NOTE | 2021-05-18 22:11 | Discharge Summary ---
Discharge Summary Hospital Course Problems/Dx: (1) AMS (altered mental status) Qualifiers: Qualified Codes: R41.82 - Altered mental status, unspecified (2) Urinary tract infection Status: Acute Qualifiers: Qualified Codes: N39.0 - Urinary tract infection, site not specified (3) Urinary retention Status: Acute Hospital Course Date of Admission: May 17, 2021 at 14:10 Admission Diagnosis : Family Physician/Provider: Mono Trimble DO Date of Discharge: 05/18/21 Discharge Diagnosis: [ ] Hospital Course: [ ] Labs and Pending Lab Test: Microbiology 05/17/21 Urine Culture - Preliminary, Resulted Escherichia coli Home Meds Active Bactrim Ds Tablet (Sulfamethoxazole/Trimethoprim) 1 Each Tablet 1 Each PO BID 7 Days Reported Olanzapine 10 Mg Tablet 10 Mg PO DAILY Sertraline HCl 50 Mg Tablet 50 Mg PO HS Simvastatin 10 Mg Tablet 10 Mg PO HS Tetrahydrozoline HCl 15 Ml Drops 2 Drop OU Q6H PRN Tylenol (Acetaminophen) 325 Mg Capsule 650 Mg PO Q4H PRN Tums Freshers (Calcium Carbonate) 200 Mg Tab.chew 500 Mg PO UD PRN MDD 5000MG TAKES 500MG TABS Guaifenesin Dm Syrup (Guaifenesin/Dextromethorphan) 5 Ml Syrup 10 Ml PO Q6H PRN Finasteride 5 Mg Tablet 5 Mg PO HS Montelukast Sodium 10 Mg Tablet 10 Mg PO HS [id number] (Polyethylene Glycol 3350) 238 Gm Powder 17 Gm PO DAILY Milk of Magnesia (Magnesium Hydroxide) 400 Mg/5 Ml Oral.susp 30 Ml PO Q12H PRN Melatonin 10 Mg Tablet 10 Mg PO HS Levothyroxine Sodium 50 Mcg Tablet 50 Mcg PO DAILY Imodium A-D (Loperamide HCl) 2 Mg Capsule 2-4 Mg PO UD PRN MDD 8MG TAKE 2 TABS AFTER FIRST WATERY STOOL AND THEN 1 TAB AFTER EACH WATERY STOOL THEREAFTER Cortizone-10 (Hydrocortisone) 28 Gm Cream..g. 1 Applic TP Q8H PRN Flomax (Tamsulosin HCl) 0.4 Mg Cap 0.4 Mg PO BID Docusate Sodium 100 Mg Capsule 200 Mg PO HS PRN Clonazepam 1 Mg Tablet 1 Mg PO BID Loratadine 10 Mg Tablet 10 Mg PO DAILY Bethanechol Chloride 25 Mg Tablet 25 Mg PO QID Benefiber (Wheat Dextrin) 1 Each Powd.pack 1 Each PO DAILY PRN Aripiprazole 10 Mg Tablet 5 Mg PO BID TAKES OF A 10MG TAB Assessment/Pt Instructions See instructions Discharge Planning: >30 minutes discharge planning Discharge Instructions Discharge Diet: No Restrictions Activity as Tolerated: Yes Discharge Physical Examination Vital Signs Vital Signs Date Time Temp Pulse Resp B/P (MAP) Pulse Ox O2 Delivery O2 Flow Rate FiO2 05/18/21 12:54 36.6 92 18 144/87 (106) 96 Room Air 05/18/21 12:22 0.00 Allergies: Coded Allergies: ibuprofen (Unverified Allergy, Mild, 06/04/09) Discharge Summary Date of Admission May 17, 2021 at 14:10 Date of Discharge May 18, 2021 at 13:20 Discharge Date: May 18, 2021 FRITZ LECHUGA MD May 18, 2021 22:11
== END 2021-05-18 13:20 ==
LOC: EDUNIT# 11:17 → ER 11:18 → 4TH 14:10
PROVIDERS: ADMIT Internal Medicine; ATTEND Internal Medicine
DX: R41.82 Altered mental status, unspecified (principal); N39.0 Urinary tract infection, site not specified; Z79.899 Other long term (current) drug therapy
CPT/HCPCS: 51701; 70450; 80053; 81000; 84439; 84443 ×2; 85025; 86141; 87077; 87088; 87186; 96365; 99284; G0378; 36415

== ENCOUNTER 2021-05-23 11:02 | Emergency (ER) | payer MEDICARE, MEDICAID ==
[~2021-05-23] VITALS: Ht 170 cm; Wt 87.5 kg
[~2021-05-23 11:02] MED LIST changes: +ACET325C7 PO; +ARIP10TA55 PO; +BETH25TA2 PO; +CALC200T33 PO; +CLON1TAB13 PO; +DOCU100C37 PO; +FINA5TAB6 PO; +GUAI5SYR PO; +HYDR28CR18 TP; +LEVO50TA6 PO; +LOPE-175 PO; +LORA10TA7 PO; +MAGN400O7 PO; +MELA10TA2 PO; +MONT-40 PO; +OLAN10TA71 PO; +POLY238P32 PO; +SERT-413 PO; +SIMV10TA26 PO; +SULF1TAB38 PO; +TETR15DR49 OU; +TMSL.4C PO; +WHEA98PO PO
[2021-05-23 11:48] VITALS: BP 130/94
--- NOTE | 2021-05-23 11:50 | ED General ---
General Stated Complaint: SOA Source of Information: Patient Exam Limitations: No Limitations History of Present Illness Date Seen by Provider: May 23, 2021 Time Seen by Provider: 11:32 Initial Comments The patient presents to the ER by private conveyance from Dr. Alejandro's office. He called ahead and let us know that the patient started having some increased work of breathing diaphoresis grunting and slumped over his table holding his belly this morning. He has intellectual disabilities and is nonverbal but will sometimes acknowledge what people are saying and follows commands appropriately according to his caregiver. Patient was recently in the hospital a week ago for UTI and sepsis. He has a indwelling Cotter catheter with a leg bag on his right leg. He is not had any vomiting cough fevers chills or hypotension. The vital signs were normal from Dr. Alejandro's office. He was a little on the soft side with a blood pressure of 100/70. Heart rate was 72. He is never had respiratory issues in the past. No known sick contacts. No known coronary history. Allergies and Home Medications Allergies Coded Allergies: ibuprofen (Unverified Allergy, Mild, 06/04/09) Patient Home Medication List Home Medication List Reviewed: Yes Acetaminophen (Tylenol) 325 Mg Capsule, 650 MG PO Q4H PRN for PAIN-MILD (1-4) OR TEMPATURE, (Reported) Entered as Reported by: FREDERIC FISCHER on 05/17/211544 Aripiprazole (Aripiprazole) 10 Mg Tablet, 5 MG PO BID, (Reported) Entered as Reported by: FREDERIC FISCHER on 05/17/211544 Bethanechol Chloride (Bethanechol Chloride) 25 Mg Tablet, 25 MG PO QID, (Reported) Entered as Reported by: FREDERIC FISCHER on 05/17/21 154 Calcium Carbonate (Tums [place]) 200 Mg Tab.chew, 500 MG PO UD PRN for INDIGESTION, (Reported) Entered as Reported by: FREDERIC FISCHER on 05/17/21 154 Clonazepam (Clonazepam) 1 Mg Tablet, 1 MG PO BID, (Reported) Entered as Reported by: FREDERIC FISCHER on 05/17/21 154 Docusate Sodium (Docusate Sodium) 100 Mg Capsule, 200 MG PO HS PRN for CONSTIPATION-1ST LINE, (Reported) Entered as Reported by: FREDERIC FISCHER on 05/17/211544 Finasteride (Finasteride) 5 Mg Tablet, 5 MG PO HS, (Reported) Entered as Reported by: FREDERIC FISCHER on 05/17/211544 Guaifenesin/Dextromethorphan (Guaifenesin Dm Syrup) 5 Ml Syrup, 10 ML PO Q6H PRN for COUGH, (Reported) Entered as Reported by: FREDERIC FISCHER on 05/17/211544 Hydrocortisone (Cortizone-10) 28 Gm Cream..g., 1 APPLIC TP Q8H PRN for RASH, (Reported) Entered as Reported by: FREDERIC FISCHER on 05/17/211544 Levothyroxine Sodium (Levothyroxine Sodium) 50 Mcg Tablet, 50 MCG PO DAILY, (Reported) Entered as Reported by: FREDERIC FISCHER on 05/17/211544 Loperamide HCl (Imodium A-D) 2 Mg Capsule, 2-4 MG PO UD PRN for DIARRHEA, (Reported) Entered as Reported by: FREDERIC FISCHER on 05/17/211544 Loratadine (Loratadine) 10 Mg Tablet, 10 MG PO DAILY, (Reported) Entered as Reported by: FREDERIC FISCHER on 05/17/211544 Magnesium Hydroxide (Milk of Magnesia) 400 Mg/5 Ml Oral.susp, 30 ML PO Q12H PRN for CONSTIPATION-7TH LINE, (Reported) Entered as Reported by: FREDERIC FISCHER on 05/17/211544 Melatonin (Melatonin) 10 Mg Tablet, 10 MG PO HS, (Reported) Entered as Reported by: FREDERIC FISCHER on 05/17/211544 Montelukast Sodium (Montelukast Sodium) 10 Mg Tablet, 10 MG PO HS, (Reported) Entered as Reported by: FREDERIC FISCHER on 05/17/211544 Olanzapine (Olanzapine) 10 Mg Tablet, 10 MG PO DAILY, (Reported) Entered as Reported by: FREDERIC FISCHER on 05/17/211544 Polyethylene Glycol 3350 (Eow1631) 238 Gm Powder, 17 GM PO DAILY, (Reported) Entered as Reported by: FREDERIC FISCHER on 05/17/211544 Sertraline HCl (Sertraline HCl) 50 Mg Tablet, 50 MG PO HS, (Reported) Entered as Reported by: FREDERIC FISCHER on 05/17/21 154 Simvastatin (Simvastatin) 10 Mg Tablet, 10 MG PO HS, (Reported) Entered as Reported by: FREDERIC FISCHER on 05/17/211544 Sulfamethoxazole/Trimethoprim (Bactrim Ds Tablet) 1 Each Tablet, 1 EACH PO BID Prescribed by: FRITZ LECHUGA on 05/18/21 1046 Tamsulosin HCl (Flomax) 0.4 Mg Cap, 0.4 MG PO BID, (Reported) Entered as Reported by: FREDERIC FISCHER on 05/17/21 154 Tetrahydrozoline HCl (Tetrahydrozoline HCl) 15 Ml Drops, 2 DROP OU Q6H PRN for DRY EYES, (Reported) Entered as Reported by: FREDERIC FISCHER on 05/17/211544 Wheat Dextrin (Benefiber) 1 Each Powd.pack, 1 EACH PO DAILY PRN for CONSTIPATION, (Reported) Entered as Reported by: FREDERIC FISCHER on 05/17/211544 Discontinued Medications Aripiprazole (Abilify 10 Mg) 10 Mg Tab, (Reported) Discontinued Reason: No Longer Taking Entered as Reported by: TEJINDER IRAHETA on 06/04/092011 Docusate Sodium (Colace) 100 Mg Capsule, (Reported) Discontinued Reason: No Longer Taking Entered as Reported by: TEJINDER IRAHETA on 06/04/092012 Finasteride (Proscar) 5 Mg Tab, (Reported) Discontinued Reason: No Longer Taking Entered as Reported by: TEJINDER IRAHETA on 06/04/092010 Fluoxetine Hcl (Prozac) 20 Mg Capsule, (Reported) Discontinued Reason: No Longer Taking Entered as Reported by: TEJINDER IRAHETA on 06/04/092012 Gemfibrozil (Gemfibrozil) 600 Mg Tablet, (Reported) Discontinued Reason: No Longer Taking Entered as Reported by: TEJINDER IRAHETA on 06/04/092012 Magnesium Hydroxide (Milk Of Magnesia) 400 Mg/5 Ml Oral.susp, (Reported) Discontinued Reason: No Longer Taking Entered as Reported by: TEJINDER IRAHETA on 06/04/092013 Olanzapine (Zyprexa) 15 Mg Tablet, (Reported) Discontinued Reason: No Longer Taking Entered as Reported by: TEJINDER IRAHETA on 06/04/092011 Tamsulosin Hcl (Flomax) 0.4 Mg Cap, (Reported) Discontinued Reason: No Longer Taking Entered as Reported by: TEJINDER IRAHETA on 06/04/092011 Review of Systems Review of Systems Constitutional: see HPI (Patient is largely noncommunicative and noncontributory towards review of systems), malaise EENTM: No hearing loss, No blurred vision Respiratory: No cough, No short of breath Cardiovascular: No edema, No Hx of Intervention, No syncope Musculoskeletal: No joint swelling, No muscle twitching All Other Systems Reviewed Negative Unless Noted: Yes Past Xopoqib-Vielef-Jmqdki Hx Patient Social History Tobacco Use?: No Use of E-Cig and/or Vaping dev: No Substance use?: No Immunizations Up To Date First/Initial COVID19 Vaccinat: may 06 COVID19 Vaccination Kvng: may 06 COVID19 Vaccination Date: may 06 Past Medical History Surgery/Hospitalization HX: pmh:urine retention, high chol, depression, anxiety, Surgeries: No Respiratory: No Cardiac: Yes High Cholesterol Neurological: Yes (Intellectual disability) Developmental Disorder Genitourinary: Yes (Urinary retention) Prostate Problems Gastrointestinal: No Musculoskeletal: No Endocrine: Yes Hypothyroidsim HEENT: No Cancer: No Did You Recieve Any Treatments: No Psychosocial: Yes Sleep Difficulties, Anxiety, Depression Integumentary: No Physical Exam Vital Signs Vital Signs - First Documented 05/23/21 11:37 Temp 36.2 Pulse 93 Resp 21 B/P (MAP) 130/94 (106) O2 Delivery Room Air Capillary Refill : Height, Weight, BMI Height: '" Weight: lbs. oz. kg; 28.85 BMI Method:Stated General Appearance: No Apparent Distress, Chronically ill Eyes: Bilateral Eye Normal Inspection, Bilateral Eye PERRL, Bilateral Eye EOMI HEENT: PERRL/EOMI, TMs Normal, Normal ENT Inspection; No Moist Mucous Membranes Neck: Full Range of Motion, Normal Inspection Respiratory: Lungs Clear, Normal Breath Sounds, No Accessory Muscle Use, No Respiratory Distress Cardiovascular: Regular Rate, Rhythm, No Edema, Normal Peripheral Pulses Gastrointestinal: Normal Bowel Sounds, No Organomegaly, Non Tender, Soft, Other (Negative for mesenteric signs Rovsing sign, McBurney's point tenderness or Chua sign.) Extremity: Normal Capillary Refill, Normal Inspection, Normal Range of Motion Neurologic/Psychiatric: Alert, Other (Nonverbal, follows simple commands.) Skin: Normal Color, Warm/Dry Focused Exam Lactate Level 05/23/21 11:48: Lactic Acid Level 2.02*H 05/23/21 13:59: Lactic Acid Level 2.09*H Lactic Acid Level Laboratory Tests Test 05/23/21 11:48 05/23/21 13:59 Lactic Acid Level 2.02 MMOL/L (0.50-2.00) *H 2.09 MMOL/L (0.50-2.00) *H Progress/Results/Core Measures Suspected Sepsis SIRS Temperature: Pulse: Respiratory Rate: Laboratory Tests 05/23/21 11:48: White Blood Count 5.7 Blood Pressure / Mean: 05/23/21 11:48: Lactic Acid Level 2.02*H 05/23/21 13:59: Lactic Acid Level 2.09*H Laboratory Tests 05/23/21 11:48: Creatinine 1.05, INR Comment 1.0, Platelet Count 235, Total Bilirubin 0.4 Results/Orders Lab Results Laboratory Tests Test 05/23/21 11:48 05/23/21 12:36 05/23/21 13:00 05/23/21 13:59 Range/Units White Blood Count 5.7 4.3-11.0 10^3/uL Red Blood Count 4.64 4.30-5.52 10^6/uL Hemoglobin 12.7 L 13.3-17.7 g/dL Hematocrit 40 40-54 % Mean Corpuscular Volume 87 80-99 fL Mean Corpuscular Hemoglobin 27 25-34 pg Mean Corpuscular Hemoglobin Concent 32 32-36 g/dL Red Cell Distribution Width 15.8 H 10.0-14.5 % Platelet Count 235 130-400 10^3/uL Mean Platelet Volume 9.3 9.0-12.2 fL Immature Granulocyte % (Auto) 0 % Neutrophils (%) (Auto) 75 42-75 % Lymphocytes (%) (Auto) 16 12-44 % Monocytes (%) (Auto) 7 0-12 % Eosinophils (%) (Auto) 1 0-10 % Basophils (%) (Auto) 1 0-10 % Neutrophils # (Auto) 4.3 1.8-7.8 10^3/uL Lymphocytes # (Auto) 0.9 L 1.0-4.0 10^3/uL Monocytes # (Auto) 0.4 0.0-1.0 10^3/uL Eosinophils # (Auto) 0.1 0.0-0.3 10^3/uL Basophils # (Auto) 0.0 0.0-0.1 10^3/uL Immature Granulocyte # (Auto) 0.0 0.0-0.1 10^3/uL Prothrombin Time 13.5 12.2-14.7 SEC INR Comment 1.0 0.8-1.4 Activated Partial Thromboplast Time 33 24-35 SEC Sodium Level 138 135-145 MMOL/L Potassium Level 4.6 3.6-5.0 MMOL/L Chloride Level 106 98-107 MMOL/L Carbon Dioxide Level 24 21-32 MMOL/L Anion Gap 8 5-14 MMOL/L Blood Urea Nitrogen 18 7-18 MG/DL Creatinine 1.05 0.60-1.30 MG/DL Estimat Glomerular Filtration Rate 76 BUN/Creatinine Ratio 17 Glucose Level 91 70-105 MG/DL Lactic Acid Level 2.02 *H 2.09 *H 0.50-2.00 MMOL/L Calcium Level 9.1 8.5-10.1 MG/DL Corrected Calcium 9.1 8.5-10.1 MG/DL Total Bilirubin 0.4 0.1-1.0 MG/DL Aspartate Amino Transf (AST/SGOT) 41 H 5-34 U/L Alanine Aminotransferase (ALT/SGPT) 26 0-55 U/L Alkaline Phosphatase 90 40-136 U/L Troponin I < 0.028 <0.028 NG/ML Total Protein 7.3 6.4-8.2 GM/DL Albumin 4.0 3.2-4.5 GM/DL Influenza Type A (RT-PCR) Not Detected Not Detecte Influenza Type B (RT-PCR) Not Detected Not Detecte SARS-CoV-2 RNA (RT-PCR) Not Detected Not Detecte Urine Color YELLOW Urine Clarity TURBID Urine pH 6.0 5-9 Urine Specific [place] >=1.030 1.016-1.022 Urine Protein 2+ H NEGATIVE Urine Glucose (UA) NEGATIVE NEGATIVE Urine Ketones NEGATIVE NEGATIVE Urine Nitrite NEGATIVE NEGATIVE Urine Bilirubin NEGATIVE NEGATIVE Urine Urobilinogen 0.2 < = 1.0 MG/DL Urine Leukocyte Esterase NEGATIVE NEGATIVE Urine RBC (Auto) 3+ H NEGATIVE Urine RBC 2-5 H /HPF Urine WBC NONE /HPF Urine Crystals PRESENT H /LPF Urine Calcium Oxalate Crystals FEW H /LPF Urine Amorphous Sediment MOD BENI URATES H /LPF Urine Bacteria NEGATIVE /HPF Urine Casts NONE /LPF Urine Mucus NEGATIVE /LPF Urine Culture Indicated NO My Orders Orders - ATIF BRITO Cbc With Automated Diff (05/23/21 11:46) Comprehensive Metabolic Panel (05/23/21 11:46) Blood Culture (05/23/21 11:46) Sputum Culture (05/23/21 11:46) Urinalysis (05/23/21 11:46) Urine Culture (05/23/21 11:46) Protime With Inr (05/23/21 11:46) Partial Thromboplastin Time (05/23/21 11:46) Chest 1 View, Ap/Pa Only (05/23/21 11:46) Ed Iv/Invasive Line Start (05/23/21 11:46) Ed Iv/Invasive Line Start (05/23/21 11:46) Ekg Tracing (05/23/21 11:46) Troponin I [place] (05/23/21 11:46) Vital Signs Adult Sepsis Patie Q15M (05/23/21 11:46) O2 (05/23/21 11:46) Remove Rings In Anticipation O (05/23/21 11:46) Lactic Acid Analyzer (05/23/21 11:46) Influenza A And B By Pcr (05/23/21 11:46) Lactated Ringers (Lr 1000 Ml Iv Solution (05/23/21 12:00) Cefepime Injection (Maxipime Injection) (05/23/21 12:00) Vancomycin Injection (Vancomycin Injecti (05/23/21 12:00) Ed Iv/Invasive Line Start (05/23/21 11:46) Lactated Ringers (Lr 1000 Ml Iv Solution (05/23/21 12:00) Covid 19 Inhouse Test (05/23/21 11:46) Ct Abdomen/Pelvis W (05/23/21 12:17) Iohexol Injection (Omnipaque 350 Mg/Ml 1 (05/23/21 12:30) Received Contrast (Hold Metformin- Contr (05/23/21 12:30) Ns (Ivpb) (Sodium Chloride 0.9% Ivpb Bag (05/23/21 12:30) Ed Iv/Invasive Line Start (05/23/21 13:01) Lactated Ringers (Lr 1000 Ml Iv Solution (05/23/21 13:15) Ketorolac Injection (Toradol Injection) (05/23/21 14:15) Bladder Scan (05/23/21 14:04) Ed Iv/Invasive Line Start (05/23/21 14:29) Ns Iv 1000 Ml (Sodium Chloride 0.9%) (05/23/21 14:30) Medications Given in ED Current Medications Medications Dose Ordered Sig/Lauren Route Start Time Stop Time Status Last Admin Dose Admin Cefepime HCl 1000 mg/Sodium Chloride 50 ml @ 100 mls/hr ONCE ONCE IV 05/23/21 12:00 05/23/21 12:29 DC 05/23/21 12:17 100 MLS/HR Iohexol 100 ml ONCE ONCE IV 05/23/21 12:30 05/23/21 12:31 DC 05/23/21 13:29 100 ML Ketorolac Tromethamine 30 mg ONCE ONCE IVP 05/23/21 14:15 05/23/21 14:16 DC 05/23/21 14:33 30 MG Lactated Ringer's 1,000 ml @ 0 mls/hr Q0M ONCE IV 05/23/21 12:00 05/23/21 12:01 DC 05/23/21 12:17 999 MLS/HR Lactated Ringer's 1,000 ml @ 0 mls/hr Q0M ONCE IV 05/23/21 12:00 05/23/21 12:01 DC 05/23/21 12:58 0 MLS/HR Sodium Chloride 100 ml ONCE ONCE IV 05/23/21 12:30 05/23/21 12:31 DC 05/23/21 13:29 80 ML Vancomycin HCl 1750 mg/Sodium Chloride 500 ml @ 258 mls/hr ONCE ONCE IV 05/23/21 12:00 05/23/21 13:56 DC 05/23/21 12:58 258 MLS/HR Vital Signs/I&O 05/23/21 05/23/21 11:37 11:48 Temp 36.2 36.2 Pulse 93 93 Resp 21 21 B/P (MAP) 130/94 (106) 130/94 O2 Delivery Room Air Room Air Capillary Refill : Progress Note #1: Time: 12:14 Progress Note Vital signs are normal. The patient follows commands appropriately for his baseline but he is less interactive than usual according to staff. Will obtain some labs and a septic work-up since his heart rates in the 90s and he recently had a urinary tract infection. We will cover him with broad-spectrum antibiotics. He is not demonstrating any respiratory distress at this time however earlier staff and Dr. Alejandro witnessed him grunting and sweating and working hard to breathe. Could be from pain in his abdomen. His belly seems soft and nonpainful at this time. We will check some blood work urinalysis and a chest x-ray as well as EKG and troponin and reexamine. CT of the abdomen and pelvis with IV contrast. Fluids are based on 20mL/kg. Progress Note #2: Time: 13:55 Progress Note The patient had a significant distention of the bladder despite Cotter catheter. There is not much urine in the bag. We flushed and started getting a good return of urine. Will do a bladder scan afterwards to make sure the bladder is decompressed. He does have some obstipation that may also be part of his pain. The x-ray findings are likely atelectasis as he does not have difficulty with breathing, evidence of elevated markers of inflammation or white count. No cough or fever. The lactate is probably related to the urinary obstruction or dehydration which could be contributing to obstipation. Either way he did receive a couple liters of fluids. ECG Initial ECG Impression Date: May 23, 2021 Initial ECG Impression Time: 11:56 Initial ECG Rate: 83 Initial ECG Rhythm: Normal Sinus Initial ECG Intervals: Normal Initial ECG Impression: Normal Initial ECG Comparisson: No Previous ECG Available Comment Normal sinus rhythm without clinically relevant ST changes. Diagnostic Imaging Diagonstic Imaging: Xray Plain Films/CT/US/NM/MRI: chest Comments [facility], [place] NAME: [facility] REC#: [id number] PT STATUS: REG ER : 1950 PHYSICIAN: ATIF BRITO MD ADMIT DATE: 05/23/21/ER Signed Date of Exam:05/23/21 CHEST 1 VIEW, AP/PA ONLY CLINICAL INDICATION: Patient with history of UTI. Patient nonverbal holding belly and grunting and diaphoretic. EXAM: Portable chest x-ray upright view. COMPARISON: CT scan of abdomen and pelvis with contrast dated 05/23/2021 FINDINGS: There is mild cardiomegaly. Pulmonary vasculature is within normal limits. There is mild consolidation of the left lung base. There are increased lung markings involving both lung bases which may represent atelectasis, but superimposed infiltrate in left lung base cannot be completely excluded. There is blunting of left costophrenic angle and left pleural effusion cannot be excluded. There is no pneumothorax. There are degenerative spurs involving the thoracic spine. There is note of air distended loop of colon involving the ascending and transverse colon. This is seen on the comparison CT scan, and the air distention has slightly decreased in the interim. There is also elevation of the right hemidiaphragm. IMPRESSION: 1: There are increased lung markings in both lung bases and mild consolidation left lung base. These findings may be related to atelectasis, but superimposed infiltrate in left lung base cannot be completely excluded. 2: Left pleural effusion also cannot be completely excluded. 3: There is cardiomegaly with no significant pulmonary vascular congestion. 4: There is air distention of colon predominantly at least the right hemidiaphragm with slight elevation right hemidiaphragm. This is noted on comparison CT scan of the abdomen and pelvis, and appears to have slightly decreased in the interim. Dictated by: Dictated on workstation # [id number] Dict: 05/23/21 133 Trans: 05/23/211338 [facility] [place] [id number] Interpreted by: MADELEINE LINDSAY MD Electronically signed by: MADELEINE LINDSAY MD 05/23/211338 Reviewed: Reviewed by Me Diagonstic Imaging: CT Plain Films/CT/US/NM/MRI: abdomen, pelvis Comments [facility] [place], [place] NAME: [facility] REC#: [id number] PT STATUS: REG ER : 1950 PHYSICIAN: ATIF BRITO MD ADMIT DATE: 05/23/21/ER Draft Date of Exam:05/23/21 CT ABDOMEN/PELVIS W PROCEDURE: CT abdomen and pelvis with contrast. TECHNIQUE: Multiple contiguous axial images were obtained through the abdomen and pelvis after administration of intravenous contrast. Auto Exposure Controls were utilized during the CT exam to meet ALARA standards for radiation dose reduction. All CT scans use one or more of the following dose optimizing techniques: automated exposure control, MA and/or KvP adjustment based on patient size and exam type or iterative reconstruction. DATE: May 23, 2021. COMPARISON: CT abdomen and pelvis November 04, 2020. INDICATION: 71-year-old male, abdominal pain. FINDINGS: There is respiratory motion artifact. There is atelectasis in the lung bases. The heart is not enlarged. There is no identified pericardial effusion. The liver is unremarkable in size and contour. There is no identified liver lesion. The main, right, and left portal veins are patent. The gallbladder is unremarkable. There is no intrahepatic or extrahepatic bile duct dilation. The main pancreatic duct is not abnormally dilated. Unremarkable appearance of the pancreatic parenchyma. The spleen is normal in size. The adrenal glands are unremarkable. Unremarkable appearance of the renal parenchyma. The urinary collecting systems are not distended. There is a Cotter catheter in the urinary bladder. The urinary bladder is otherwise unremarkable in appearance. There is a small fat-containing left inguinal hernia. The appendix is unremarkable and well seen on axial image 129 and adjacent sequential images. There is a moderate volume colonic stool. The sigmoid colon is distended up to approximately 8.6 cm in diameter. There is no identified transition point and bowel caliber. There is no free intraperitoneal air. There is no drainable fluid collection. There is no free pelvic fluid. There is no identified abnormally enlarged lymph node in the abdomen or pelvis which meets CT size criteria for adenopathy. There are multilevel degenerative changes of the spine. There is no identified acute bony abnormality. IMPRESSION: CT ABDOMEN AND PELVIS. 1. No identified acute abnormality in the abdomen or pelvis. 2. Moderate volume colonic stool with distention of the sigmoid colon up to 8.6 cm in diameter. No identified transition point in bowel caliber to specifically suggest colonic obstruction. Dictated on workstation # [id number] Dict: 05/23/21 1323 Trans: 05/23/21 1333 [facility] [place] [id number] Interpreted by: SAVANNAH GARCIA MD Electronically signed by: Reviewed: Reviewed by Me Departure Impression Primary Impression: Obstruction of Cotter catheter Qualified Codes: T83.091A - Other mechanical complication of indwelling urethral catheter, initial encounter Additional Impression: Obstipation Disposition: 01 HOME, SELF-CARE Condition: Stable Departure-Patient Inst. Decision time for Depature: 15:34 Referrals: WADE ALEJANDRO DO (PCP/Family) Primary Care Physician LEOBARDO LOMBARDI MD Patient Instructions: Urinary Obstruction (DC) Add. Discharge Instructions: If his urine bag is not filling up despite drinking fluids and he seems to be uncomfortable then have a nurse assessment or return to the ER or urologist during business hours. Keep his follow-up appointment with Dr. Lombardi, urology. Encourage him to drink lots of fluids. Double up on his MiraLAX for the next 2 to 3 days until he cleans out his bowels. Copy Copies To 1: LEOBARDO LOMBARDI MD, TITUS J May 23, 2021 11:50
[2021-05-23 11:58] LABS: BASOPHILS % (AUTO) 1 % (0-10); EOSINOPHILS # (AUTO) 0.1 10^3/uL (0.0-0.3); EOSINOPHILS % (AUTO) 1 % (0-10); HEMATOCRIT 40 % (40-54); HEMOGLOBIN 12.7 g/dL (13.3-17.7); LYMPHOCYTES # (AUTO) 0.9 10^3/uL (1.0-4.0); LYMPHOCYTES % (AUTO) 16 % (12-44); MEAN CORPUSCULAR HEMOGLOBIN 27 pg (25-34); MEAN CORPUSCULAR HGB CONC 32 g/dL (32-36); MEAN CORPUSCULAR VOLUME 87 fL (80-99); MEAN PLATELET VOLUME 9.3 fL (9.0-12.2); MONOCYTES # (AUTO) 0.4 10^3/uL (0.0-1.0); MONOCYTES % (AUTO) 7 % (0-12); NEUTROPHILS # (AUTO) 4.3 10^3/uL (1.8-7.8); NEUTROPHILS % (AUTO) 75 % (42-75); PLATELET COUNT 235 10^3/uL (130-400); WHITE BLOOD COUNT 5.7 10^3/uL (4.3-11.0)
[2021-05-23] MEDS ORDERED: LACTATED RINGERS 1,000 ML IV ONE ×3 (12:00→13:15)
[2021-05-23] MEDS ORDERED: VANCOMYCIN INJECTION 1,750 MG in NS IV 500 ML 500 ML IV ONE (12:00)
[2021-05-23] MEDS ORDERED: CEFEPIME INJECTION 1,000 MG in NS (IVPB) 50 ML IV ONE (12:00)
[2021-05-23 12:08] LABS: CHLORIDE 106 MMOL/L (98-107); POTASSIUM 4.6 MMOL/L (3.6-5.0); SODIUM 138 MMOL/L (135-145)
[2021-05-23 12:09] LABS: CALCIUM 9.1 MG/DL (8.5-10.1)
[2021-05-23 12:10] LABS: GLUCOSE 91 MG/DL (70-105); PROTHROMBIN TIME PATIENT 13.5 SEC (12.2-14.7); TOTAL PROTEIN 7.3 GM/DL (6.4-8.2)
[2021-05-23 12:11] LABS: CARBON DIOXIDE 24 MMOL/L (21-32)
[2021-05-23 12:12] LABS: BILIRUBIN,TOTAL 0.4 MG/DL (0.1-1.0)
[2021-05-23 12:13] LABS: ALKALINE PHOSPHATASE 90 U/L (40-136)
[2021-05-23 12:14] LABS: CREATININE SERUM 1.05 MG/DL (0.60-1.30); GFR ESTIMATED 76
[2021-05-23 12:15] LABS: BUN/CREATININE RATIO 17
[2021-05-23 12:17] LABS: ALANINE AMINOTRANSFERASE 26 U/L (0-55)
[2021-05-23] MEDS ORDERED: NS 100 ML (IVPB) BAG IV ONE (12:30)
[2021-05-23] MEDS ORDERED: HOLD METFORMIN - RECEIVED CONTRAST 20 ML VIAL IV SCH (12:30)
[2021-05-23] MEDS ORDERED: IOHEXOL 350 MG/ML 100 ML (OMNIPAQUE 350) VIAL IV ONE (12:30)
[2021-05-23 13:06] LABS: BILIRUBIN,URINE NEGATIVE (NEGATIVE); CLARITY,URINE TURBID; COLOR,URINE YELLOW; GLUCOSE, URINE (UA) NEGATIVE (NEGATIVE); KETONES,URINE NEGATIVE (NEGATIVE); LEUKOCYTE ESTERASE ,URINE NEGATIVE (NEGATIVE); NITRITE,URINE NEGATIVE (NEGATIVE); PROTEIN,URINE 2+ (NEGATIVE)
[2021-05-23 13:17] LABS: AMORPHOUS SEDIMENT,UR MOD AMOR URATES /LPF; BACTERIA,URINE NEGATIVE /HPF; CALCIUM OXALATE CRYSTALS,UR FEW /LPF
--- NOTE | 2021-05-23 13:33 | Diagnostic Imaging Report ---
PROCEDURE: CT abdomen and pelvis with contrast. TECHNIQUE: Multiple contiguous axial images were obtained through the abdomen and pelvis after administration of intravenous contrast. Auto Exposure Controls were utilized during the CT exam to meet ALARA standards for radiation dose reduction. All CT scans use one or more of the following dose optimizing techniques: automated exposure control, MA and/or KvP adjustment based on patient size and exam type or iterative reconstruction. DATE: May 23, 2021. COMPARISON: CT abdomen and pelvis November 04, 2020. INDICATION: 71-year-old male, abdominal pain. FINDINGS: There is respiratory motion artifact. There is atelectasis in the lung bases. The heart is not enlarged. There is no identified pericardial effusion. The liver is unremarkable in size and contour. There is no identified liver lesion. The main, right, and left portal veins are patent. The gallbladder is unremarkable. There is no intrahepatic or extrahepatic bile duct dilation. The main pancreatic duct is not abnormally dilated. Unremarkable appearance of the pancreatic parenchyma. The spleen is normal in size. The adrenal glands are unremarkable. Unremarkable appearance of the renal parenchyma. The urinary collecting systems are not distended. There is a Cotter catheter in the urinary bladder. The urinary bladder is otherwise unremarkable in appearance. There is a small fat-containing left inguinal hernia. The appendix is unremarkable and well seen on axial image 129 and adjacent sequential images. There is a moderate volume colonic stool. The sigmoid colon is distended up to approximately 8.6 cm in diameter. There is no identified transition point and bowel caliber. There is no free intraperitoneal air. There is no drainable fluid collection. There is no free pelvic fluid. There is no identified abnormally enlarged lymph node in the abdomen or pelvis which meets CT size criteria for adenopathy. There are multilevel degenerative changes of the spine. There is no identified acute bony abnormality. IMPRESSION: CT ABDOMEN AND PELVIS. 1. No identified acute abnormality in the abdomen or pelvis. 2. Moderate volume colonic stool with distention of the sigmoid colon up to 8.6 cm in diameter. No identified transition point in bowel caliber to specifically suggest colonic obstruction. Dictated by: Dictated on workstation # [id number]
--- NOTE | 2021-05-23 13:40 | Diagnostic Imaging Report ---
CLINICAL INDICATION: Patient with history of UTI. Patient nonverbal holding belly and grunting and diaphoretic. EXAM: Portable chest x-ray upright view. COMPARISON: CT scan of abdomen and pelvis with contrast dated 05/23/2021 FINDINGS: There is mild cardiomegaly. Pulmonary vasculature is within normal limits. There is mild consolidation of the left lung base. There are increased lung markings involving both lung bases which may represent atelectasis, but superimposed infiltrate in left lung base cannot be completely excluded. There is blunting of left costophrenic angle and left pleural effusion cannot be excluded. There is no pneumothorax. There are degenerative spurs involving the thoracic spine. There is note of air distended loop of colon involving the ascending and transverse colon. This is seen on the comparison CT scan, and the air distention has slightly decreased in the interim. There is also elevation of the right hemidiaphragm. IMPRESSION: 1: There are increased lung markings in both lung bases and mild consolidation left lung base. These findings may be related to atelectasis, but superimposed infiltrate in left lung base cannot be completely excluded. 2: Left pleural effusion also cannot be completely excluded. 3: There is cardiomegaly with no significant pulmonary vascular congestion. 4: There is air distention of colon predominantly at least the right hemidiaphragm with slight elevation right hemidiaphragm. This is noted on comparison CT scan of the abdomen and pelvis, and appears to have slightly decreased in the interim. Dictated by: Dictated on workstation # [id number]
[2021-05-23] MEDS ORDERED: KETOROLAC 30 MG/ML VIAL IVP ONE (14:15)
[2021-05-23] MEDS ORDERED: NS IV 1000 ML 1,000 ML IV SCH (14:30)
== END 2021-05-23 15:50 | disposition home or self-care (01) ==
LOC: EDUNIT# 11:02 → ER 11:03
DX: T83.098A Other mechanical complication of other urinary catheter, initial encounter (principal); K59.00 Constipation, unspecified; Z20.822 Contact with and (suspected) exposure to COVID-19
CPT/HCPCS: 36415; 71045; 74177; 80053; 81000; 83605; 84484; 85025; 85610; 85730; 87040; 87088; 87636; 93005

== ENCOUNTER → 2021-06-15 | Outpatient (CLI) | payer MEDICARE, MEDICAID ==
--- NOTE | 2021-06-15 16:19 | Diagnostic Imaging Report ---
INDICATION: Difficulty urinating. FINDINGS: Pre-void bladder had an estimated volume of 742 mL. There is a trace 4.6 mL post-void residual volume. The bladder appeared nonfocal. No filling defect. No identifiable mass. Ureteral jet patency bilaterally confirmed. IMPRESSION: Large-volume distended bladder 742 mL with trace 4.6 mL post-void residual. Dictated by: Dictated on workstation # [id number]
== END ==
LOC: RAD 10:54
PROVIDERS: ATTEND Family Medicine
DX: R39.198 Other difficulties with micturition (principal)
CPT/HCPCS: 76857

== ENCOUNTER 2021-07-01 17:45 | Emergency (ER) | payer MEDICARE, MEDICAID ==
[~2021-07-01] VITALS: Ht 170 cm; Wt 87.0 kg
[2021-07-01 17:45] VITALS: BP 127/73
[2021-07-01 18:18] LABS: BILIRUBIN,URINE NEGATIVE (NEGATIVE); CLARITY,URINE CLEAR; COLOR,URINE YELLOW; GLUCOSE, URINE (UA) NEGATIVE (NEGATIVE); KETONES,URINE NEGATIVE (NEGATIVE); LEUKOCYTE ESTERASE ,URINE NEGATIVE (NEGATIVE); NITRITE,URINE NEGATIVE (NEGATIVE); PROTEIN,URINE NEGATIVE (NEGATIVE)
--- NOTE | 2021-07-01 18:22 | ED GU-Male ---
General Chief Complaint: - Reproductive Stated Complaint: DIFF URINATING Nursing Triage Note: BROUGHT TO THE ER WITH STAFF WHO STATES HE HAS HAD TROUBLE URINATING X24 HOURS. Source: patient Exam Limitations: no limitations History of Present Illness Date Seen by Provider: Jul 01, 2021 Time Seen by Provider: 18:07 Initial Comments Patient to the ER by private conveyance with his staff where he resides at [facility] and chief complaint for the past 2 she has has not been to make any urine. He is known to Dr. Smith with a history of prostatism on Flomax. No fevers chills nausea or vomiting. Nursing staff remarks that they did a bedside postvoid residual and found greater than 750 cc so they put a Cotter catheter in and obtained a urine sample. Allergies and Home Medications Allergies Coded Allergies: ibuprofen (Unverified Allergy, Mild, 06/04/09) Patient Home Medication List Home Medication List Reviewed: Yes Acetaminophen (Tylenol) 325 Mg Capsule, 650 MG PO Q4H PRN for PAIN-MILD (1-4) OR TEMPATURE, (Reported) Entered as Reported by: FREDERIC FISCHER on 05/17/21 154 Aripiprazole (Aripiprazole) 10 Mg Tablet, 5 MG PO BID, (Reported) Entered as Reported by: FREDERIC FISCHER on 05/17/21 154 Bethanechol Chloride (Bethanechol Chloride) 25 Mg Tablet, 25 MG PO QID, (Repor jaun) Entered as Reported by: FREDERIC FISCHER on 05/17/21 154 Calcium Carbonate (Tums [place]) 200 Mg Tab.chew, 500 MG PO UD PRN for INDIGESTION, (Reported) Entered as Reported by: FREDERIC FISCHER on 05/17/21 154 Clonazepam (Clonazepam) 1 Mg Tablet, 1 MG PO BID, (Reported) Entered as Reported by: FREDERIC FISCHER on 05/17/21 154 Docusate Sodium (Docusate Sodium) 100 Mg Capsule, 200 MG PO HS PRN for CONSTIPATION-1ST LINE, (Reported) Entered as Reported by: FREDERIC FISCHER on 05/17/21 154 Finasteride (Finasteride) 5 Mg Tablet, 5 MG PO HS, (Reported) Entered as Reported by: FREDERIC FISCHER on 05/17/21 154 Guaifenesin/Dextromethorphan (Guaifenesin Dm Syrup) 5 Ml Syrup, 10 ML PO Q6H PRN for COUGH, (Reported) Entered as Reported by: FREDERIC FISCHER on 05/17/211544 Hydrocortisone (Cortizone-10) 28 Gm Cream..g., 1 APPLIC TP Q8H PRN for RASH, (Reported) Entered as Reported by: FREDERIC FISCHER on 05/17/211544 Levothyroxine Sodium (Levothyroxine Sodium) 50 Mcg Tablet, 50 MCG PO DAILY, (Reported) Entered as Reported by: FREDERIC FISCHER on 05/17/211544 Loperamide HCl (Imodium A-D) 2 Mg Capsule, 2-4 MG PO UD PRN for DIARRHEA, (Reported) Entered as Reported by: FREDERIC FISCHER on 05/17/211544 Loratadine (Loratadine) 10 Mg Tablet, 10 MG PO DAILY, (Reported) Entered as Reported by: FREDERIC FISCHER on 05/17/211544 Magnesium Hydroxide (Milk of Magnesia) 400 Mg/5 Ml Oral.susp, 30 ML PO Q12H PRN for CONSTIPATION-7TH LINE, (Reported) Entered as Reported by: FREDERIC FISCHER on 05/17/211544 Melatonin (Melatonin) 10 Mg Tablet, 10 MG PO HS, (Reported) Entered as Reported by: FREDERIC FISCHER on 05/17/211544 Montelukast Sodium (Montelukast Sodium) 10 Mg Tablet, 10 MG PO HS, (Reported) Entered as Reported by: FREDERIC FISCHER on 05/17/211544 Olanzapine (Olanzapine) 10 Mg Tablet, 10 MG PO DAILY, (Reported) Entered as Reported by: FREDERIC FISCHER on 05/17/211544 Polyethylene Glycol 3350 ([id number]) 238 Gm Powder, 17 GM PO DAILY, (Reported) Entered as Reported by: FREDERIC FISCHER on 05/17/211544 Sertraline HCl (Sertraline HCl) 50 Mg Tablet, 50 MG PO HS, (Reported) Entered as Reported by: FREDERIC FISCHER on 05/17/211544 Simvastatin (Simvastatin) 10 Mg Tablet, 10 MG PO HS, (Reported) Entered as Reported by: FREDERIC FISCHER on 3/16/22 1545 Sulfamethoxazole/Trimethoprim (Bactrim Ds Tablet) 1 Each Tablet, 1 EACH PO BID Prescribed by: FRITZ LECHUGA on 05/18/21 1046 Tamsulosin HCl (Flomax) 0.4 Mg Cap, 0.4 MG PO BID, (Reported) Entered as Reported by: FREDERIC FISCHER on 05/17/21 154 Tetrahydrozoline HCl (Tetrahydrozoline HCl) 15 Ml Drops, 2 DROP OU Q6H PRN for DRY EYES, (Reported) Entered as Reported by: FREDERIC FISCHER on 05/17/21 154 Wheat Dextrin (Benefiber) 1 Each Powd.pack, 1 EACH PO DAILY PRN for CONSTIPATION, (Reported) Entered as Reported by: FREDERIC FISCHER on 05/17/211544 Review of Systems Review of Systems Constitutional: No chills, No diaphoresis EENTM: No ear discharge, No ear pain Respiratory: No cough, No short of breath Cardiovascular: No chest pain, No palpitations Gastrointestinal: abdominal pain; No vomiting Genitourinary: see HPI; denies burning, denies dysuria All Other Systemes Reviewed Negative Unless Noted: Yes Past Fprlpig-Nihark-Izjhmo Hx Patient Social History Tobacco Use?: No Use of E-Cig and/or Vaping dev: No Immunizations Up To Date First/Initial COVID19 Vaccinat: 04/08/20 Second COVID19 Vaccination Kvng: 05/06/20 Third COVID19 Vaccination Date: may 06 Past Medical History Surgery/Hospitalization HX: pmh:urine retention, high chol, depression, anxiety, Surgeries: No Respiratory: No Cardiac: Yes High Cholesterol Neurological: Yes (Intellectual disability) Developmental Disorder Genitourinary: Yes (Urinary retention) Prostate Problems Gastrointestinal: No Musculoskeletal: No Endocrine: Yes Hypothyroidsim HEENT: No Cancer: No Did You Recieve Any Treatments: No Psychosocial: Yes Sleep Difficulties, Anxiety, Depression Integumentary: No Physical Exam Vital Signs Vital Signs - First Documented 07/01/21 17:45 Temp 36.3 Pulse 90 Resp 16 B/P (MAP) 127/73 (91) Pulse Ox 95 O2 Delivery Room Air Capillary Refill : Less Than 3 Seconds Height, Weight, BMI Height: '" Weight: lbs. oz. kg; 30.00 BMI Method:Stated General Appearance: WD/WN, mild distress HEENT: PERRL/EOMI, pharynx normal Neck: full range of motion, normal inspection Cardiovascular: normal peripheral pulses, regular rate, rhythm Respiratory: no respiratory distress, no accessory muscle use Gastrointestinal: normal bowel sounds, non tender, soft Neurologic/Psychiatric: alert, normal mood/affect Skin: normal color, warm/dry Progress/Results/Core Measures Suspected Sepsis SIRS Temperature: Pulse: 90 Respiratory Rate: 16 Blood Pressure 127 /73 Mean: 91 Results/Orders Lab Results Laboratory Tests Test 07/01/21 18:10 Range/Units Urine Color YELLOW Urine Clarity CLEAR Urine pH 6.0 5-9 Urine Specific [place] 1.020 1.016-1.022 Urine Protein NEGATIVE NEGATIVE Urine Glucose (UA) NEGATIVE NEGATIVE Urine Ketones NEGATIVE NEGATIVE Urine Nitrite NEGATIVE NEGATIVE Urine Bilirubin NEGATIVE NEGATIVE Urine Urobilinogen 0.2 < = 1.0 MG/DL Urine Leukocyte Esterase NEGATIVE NEGATIVE Urine RBC (Auto) NEGATIVE NEGATIVE Urine RBC NONE /HPF Urine WBC NONE /HPF Urine Squamous Epithelial Cells NONE /HPF Urine Crystals NONE /LPF Urine Bacteria NEGATIVE /HPF Urine Casts NONE /LPF Urine Mucus NEGATIVE /LPF Urine Culture Indicated NO My Orders Orders - ATIF BRITO Ua Culture If Indicated (07/01/21 18:08) Bladder Scan (07/01/21 18:08) Cotter Cath (07/01/21 18:27) Vital Signs/I&O 07/01/21 17:45 Temp 36.3 Pulse 90 Resp 16 B/P (MAP) 127/73 (91) Pulse Ox 95 O2 Delivery Room Air Capillary Refill : Less Than 3 Seconds Blood Pressure Mean: 91 Progress Note : Time: 18:21 Progress Note Cotter catheter placed, urinalysis ordered. He has aseptic vital signs and a soft, nonsurgical abdomen. He is already on Flomax. Plan to have him follow-up with Dr. Smith plus or minus antibiotics as appropriate. Departure Impression Primary Impression: Urinary obstruction Disposition: 01 HOME, SELF-CARE Condition: Stable Departure-Patient Inst. Decision time for Depature: 18:30 Referrals: WADE ALEJANDRO DO (PCP/Family) Primary Care Physician LEOBARDO LOMBARDI MD Patient Instructions: Urinary Retention (DC) Add. Discharge Instructions: Make a follow-up appointment next week with Dr. Lombardi, urology. Promptly return to the urologist or the ER if he experiences fever, vomiting or other worrisome symptoms. All discharge instructions reviewed with patient and/or family. Voiced understanding. Copy Copies To 1: LEOBARDO LOMBARDI MD, TITUS J Jul 01, 2021 18:22
[2021-07-01 18:28] LABS: BACTERIA,URINE NEGATIVE /HPF
== END 2021-07-01 18:41 | disposition home or self-care (01) ==
LOC: ER 17:45 → EDUNIT# 17:45 → ER 18:41
DX: N13.9 Obstructive and reflux uropathy, unspecified (principal); Z87.438 Personal history of other diseases of male genital organs; Z79.899 Other long term (current) drug therapy
CPT/HCPCS: 51702; 81000

== ENCOUNTER 2021-07-20 13:29 | Emergency (ER) | payer MEDICARE, MEDICAID ==
[~2021-07-20] VITALS: Ht 170 cm; Wt 87.0 kg
[2021-07-20 13:35] VITALS: BP 134/74
--- NOTE | 2021-07-20 13:50 | ED GU-Male ---
General Chief Complaint: - Reproductive Stated Complaint: BLOOD IN URINE Source: patient Exam Limitations: no limitations (CARLOS MARQUEZ) History of Present Illness Date Seen by Provider: July 20, 2021 Time Seen by Provider: 13:44 Initial Comments Patient is a 71-year-old male with a history of urinary distention who presents to ED with dark urine. Patient is a resident at [facility]. Was brought to the ED by staff. Noted small amounts of bright tinge blood and noted dark urine this afternoon. Has been urinating without any difficulties. Eating and drinking at home. Currently following up with Dr. Smith. Denies fever, vomiting, diarrhea, headache, dizziness (CARLOS MARQUEZ) Allergies and Home Medications Allergies Coded Allergies: ibuprofen (Unverified Allergy, Mild, 06/04/09) Patient Home Medication List Home Medication List Reviewed: Yes (CARLOS MARQUEZ) Acetaminophen (Tylenol) 325 Mg Capsule, 650 MG PO Q4H PRN for PAIN-MILD (1-4) OR TEMPATURE, (Reported) Entered as Reported by: FREDERIC FISCHER on 05/17/21 154 Aripiprazole (Aripiprazole) 10 Mg Tablet, 5 MG PO BID, (Reported) Entered as Reported by: FREDERIC FISCHER on 05/17/21 154 Bethanechol Chloride (Bethanechol Chloride) 25 Mg Tablet, 25 MG PO QID, (Reported) Entered as Reported by: FREDERIC FISCHER on 05/17/21 1545 Calcium Carbonate (Tums [place]) 200 Mg Tab.chew, 500 MG PO UD PRN for INDIGESTION, (Reported) Entered as Reported by: FREDERIC FISCHER on 05/17/21 154 Cephalexin (Cephalexin) 500 Mg Tablet, 500 MG PO TID Prescribed by: YUN CHEN on 07/20/21 1500 Clonazepam (Clonazepam) 1 Mg Tablet, 1 MG PO BID, (Reported) Entered as Reported by: FREDERIC FISCHER on 05/17/21 154 Docusate Sodium (Docusate Sodium) 100 Mg Capsule, 200 MG PO HS PRN for CONSTIPATION-1ST LINE, (Reported) Entered as Reported by: FREDERIC FISCHER on 05/17/21 154 Finasteride (Finasteride) 5 Mg Tablet, 5 MG PO HS, (Reported) Entered as Reported by: FREDERIC FISCHER on 05/17/211544 Guaifenesin/Dextromethorphan (Guaifenesin Dm Syrup) 5 Ml Syrup, 10 ML PO Q6H PRN for COUGH, (Reported) Entered as Reported by: FREDERIC FISCHER on 05/17/211544 Hydrocortisone (Cortizone-10) 28 Gm Cream..g., 1 APPLIC TP Q8H PRN for RASH, (Reported) Entered as Reported by: FREDERIC FISCHER on 05/17/211544 Levothyroxine Sodium (Levothyroxine Sodium) 50 Mcg Tablet, 50 MCG PO DAILY, (Reported) Entered as Reported by: FREDERIC FISCHER on 05/17/211544 Loperamide HCl (Imodium A-D) 2 Mg Capsule, 2-4 MG PO UD PRN for DIARRHEA, (Reported) Entered as Reported by: FREDERIC FISCHER on 05/17/211544 Loratadine (Loratadine) 10 Mg Tablet, 10 MG PO DAILY, (Reported) Entered as Reported by: FREDERIC FISCHER on 05/17/211544 Magnesium Hydroxide (Milk of Magnesia) 400 Mg/5 Ml Oral.susp, 30 ML PO Q12H PRN for CONSTIPATION-7TH LINE, (Reported) Entered as Reported by: FREDERIC FISCHER on 05/17/211544 Melatonin (Melatonin) 10 Mg Tablet, 10 MG PO HS, (Reported) Entered as Reported by: FREDERIC FISCHER on 05/17/211544 Montelukast Sodium (Montelukast Sodium) 10 Mg Tablet, 10 MG PO HS, (Reported) Entered as Reported by: FREDERIC FISCHER on 05/17/211544 Olanzapine (Olanzapine) 10 Mg Tablet, 10 MG PO DAILY, (Reported) Entered as Reported by: FREDEIRC FISCHER on 05/17/211544 Polyethylene Glycol 3350 ([id number]) 238 Gm Powder, 17 GM PO DAILY, (Reported) Entered as Reported by: FREDERIC FISCHER on 05/17/211544 Sertraline HCl (Sertraline HCl) 50 Mg Tablet, 50 MG PO HS, (Reported) Entered as Reported by: FREDERIC FISCHER on 05/17/211544 Simvastatin (Simvastatin) 10 Mg Tablet, 10 MG PO HS, (Reported) Entered as Reported by: FREDERIC FISCHER on 05/17/211544 Sulfamethoxazole/Trimethoprim (Bactrim Ds Tablet) 1 Each Tablet, 1 EACH PO BID Prescribed by: FRITZ LECHUGA on 05/18/21 1046 Tamsulosin HCl (Flomax) 0.4 Mg Cap, 0.4 MG PO BID, (Reported) Entered as Reported by: FREDERIC FISCHER on 05/17/21 154 Tetrahydrozoline HCl (Tetrahydrozoline HCl) 15 Ml Drops, 2 DROP OU Q6H PRN for DRY EYES, (Reported) Entered as Reported by: FREDERIC FISCHER on 05/17/21 154 Wheat Dextrin (Benefiber) 1 Each Powd.pack, 1 EACH PO DAILY PRN for CONSTIPATION, (Reported) Entered as Reported by: FREDERIC FISCHER on 05/17/211544 Review of Systems Review of Systems Constitutional: No chills, No diaphoresis EENTM: No blurred vision, No double vision, No eye pain Respiratory: No cough, No short of breath, No stridor, No wheezing Gastrointestinal: No abdominal pain, No diarrhea, No nausea, No vomiting Genitourinary: denies burning, denies discharge; hematuria Musculoskeletal: No back pain, No joint pain Skin: No change in color, No change in hair/nails (CARLOS MARQUEZ) All Other Systemes Reviewed Negative Unless Noted: Yes (CARLOS MARQUEZ) Past Okmmmeb-Hndyna-Fveabs Hx Immunizations Up To Date First/Initial COVID19 Vaccinat: 04/08/20 Second COVID19 Vaccination Kvng: 05/06/20 Third COVID19 Vaccination Date: may 06 (CARLOS MARQUEZ) Past Medical History Surgery/Hospitalization HX: pmh:urine retention, high chol, depression, anxiety, Surgeries: No Respiratory: No Cardiac: Yes High Cholesterol Neurological: Yes (Intellectual disability) Developmental Disorder Genitourinary: Yes (Urinary retention) Prostate Problems Gastrointestinal: No Musculoskeletal: No Endocrine: Yes Hypothyroidsim HEENT: No Cancer: No Did You Recieve Any Treatments: No Psychosocial: Yes Sleep Difficulties, Anxiety, Depression Integumentary: No (CARLOS MARQUEZ) Physical Exam Vital Signs Vital Signs - First Documented 07/20/21 13:35 Temp 36.0 Pulse 100 Resp 16 B/P (MAP) 134/74 (94) Pulse Ox 94 O2 Delivery Room Air (VICKY MCFARLAND MD) Vital Signs Capillary Refill : (CARLOS MARQUEZ) Height, Weight, BMI Height: '" Weight: lbs. oz. kg; 30.00 BMI Method:Stated General Appearance: WD/WN, no apparent distress HEENT: PERRL/EOMI, normal ENT inspection, TMs normal, pharynx normal Neck: non-tender, full range of motion, supple Cardiovascular: regular rate, rhythm, no edema, no gallop, no JVD Respiratory: chest non-tender, lungs clear, normal breath sounds, no respiratory distress, no accessory muscle use Gastrointestinal: normal bowel sounds, non tender, soft, no organomegaly Back: normal inspection Extremities: normal range of motion, non-tender, normal inspection, no pedal edema (CARLOS MARQUEZ) Progress/Results/Core Measures Suspected Sepsis SIRS Temperature: Pulse: Respiratory Rate: Laboratory Tests 07/20/21 14:25: White Blood Count 8.0 Blood Pressure / Mean: Laboratory Tests 07/20/21 14:25: Creatinine 0.80, Platelet Count 289, Total Bilirubin 0.4 (CARLOS MARQUEZ) Results/Orders Lab Results Laboratory Tests Test 07/20/21 13:50 07/20/21 14:25 Range/Units Urine Color BROWN H Urine Clarity SL CLOUDY Urine pH 5.0 5-9 Urine Specific [place] >=1.030 1.016-1.022 Urine Protein 2+ H NEGATIVE Urine Glucose (UA) NEGATIVE NEGATIVE Urine Ketones NEGATIVE NEGATIVE Urine Nitrite POSITIVE H NEGATIVE Urine Bilirubin NEGATIVE NEGATIVE Urine Urobilinogen 2.0 < = 1.0 MG/DL Urine Leukocyte Esterase 1+ H NEGATIVE Urine RBC (Auto) 3+ H NEGATIVE Urine RBC >100 H /HPF Urine WBC 25-50 H /HPF Urine Squamous Epithelial Cells NONE /HPF Urine Renal Epithelial Cells NONE /HPF Urine Crystals PRESENT H /LPF Urine Amorphous Sediment FEW BENI URATES H /LPF Urine Bacteria LARGE H /HPF Urine Casts NONE /LPF Urine Mucus NEGATIVE /LPF Urine Culture Indicated YES White Blood Count 8.0 4.3-11.0 10^3/uL Red Blood Count 4.00 L 4.30-5.52 10^6/uL Hemoglobin 11.1 L 13.3-17.7 g/dL Hematocrit 35 L 40-54 % Mean Corpuscular Volume 86 80-99 fL Mean Corpuscular Hemoglobin 28 25-34 pg Mean Corpuscular Hemoglobin Concent 32 32-36 g/dL Red Cell Distribution Width 15.4 H 10.0-14.5 % Platelet Count 289 130-400 10^3/uL Mean Platelet Volume 9.0 9.0-12.2 fL Immature Granulocyte % (Auto) 0 % Neutrophils (%) (Auto) 74 42-75 % Lymphocytes (%) (Auto) 18 12-44 % Monocytes (%) (Auto) 6 0-12 % Eosinophils (%) (Auto) 2 0-10 % Basophils (%) (Auto) 1 0-10 % Neutrophils # (Auto) 5.9 1.8-7.8 X 10^3 Lymphocytes # (Auto) 1.4 1.0-4.0 X 10^3 Monocytes # (Auto) 0.5 0.0-1.0 X 10^3 Eosinophils # (Auto) 0.1 0.0-0.3 10^3/uL Basophils # (Auto) 0.1 0.0-0.1 10^3/uL Immature Granulocyte # (Auto) 0.0 0.0-0.1 10^3/uL Sodium Level 141 135-145 MMOL/L Potassium Level 3.9 3.6-5.0 MMOL/L Chloride Level 106 98-107 MMOL/L Carbon Dioxide Level 25 21-32 MMOL/L Anion Gap 10 5-14 MMOL/L Blood Urea Nitrogen 18 7-18 MG/DL Creatinine 0.80 0.60-1.30 MG/DL Estimat Glomerular Filtration Rate 95 BUN/Creatinine Ratio 23 Glucose Level 108 H 70-105 MG/DL Calcium Level 8.8 8.5-10.1 MG/DL Corrected Calcium 9.0 8.5-10.1 MG/DL Total Bilirubin 0.4 0.1-1.0 MG/DL Aspartate Amino Transf (AST/SGOT) 37 H 5-34 U/L Alanine Aminotransferase (ALT/SGPT) 39 0-55 U/L Alkaline Phosphatase 72 40-136 U/L Total Protein 6.3 L 6.4-8.2 GM/DL Albumin 3.7 3.2-4.5 GM/DL (VICKY MCFARLAND MD) Vital Signs/I&O 07/20/21 13:35 Temp 36.0 Pulse 100 Resp 16 B/P (MAP) 134/74 (94) Pulse Ox 94 O2 Delivery Room Air (VICKY MCFARLAND MD) Vital Signs/I&O Capillary Refill : (CARLOS MARQUEZ) Departure Communication (PCP) I Was able to flush the catheter here with improvement. Urine does appear dark but without clots. Blood noted in urine with concern for infection. Concerning for infectious etiology. Will discharge with Keflex. Normal kidney function, white blood count. Patient has been acting his normal self. Lab work was otherwise reassuring. Patient will be discharged with outpatient follow-up with urology. Staff agrees with plan of action. (CARLOS MARQUEZ) Impression Primary Impression: UTI (urinary tract infection) Disposition: HOME, SELF-CARE Condition: Stable Departure-Patient Inst. Decision time for Depature: 14:59 (CARLOS MARQUEZ) Referrals: WADE ALEJANDRO DO (PCP/Family) Primary Care Physician Patient Instructions: Urinary Tract Infection, Adult (DC) Scripts Cephalexin (Cephalexin) 500 Mg Tablet 500 MG PO TID for 10 Days, #30 TAB Prov: CARLOS MARQUEZ 07/20/21 ATTENDING PHYSICIAN NOTE: I was physically present as attending physician in the emergency department during the care of this patient, but I was not directly involved in the decision making or delivery of care for this patient. (VICKY MCFARLAND MD) CARLOS MAQRUEZ July 20, 2021 13:49 VICKY MCFARLAND MD July 20, 2021 20:07
[2021-07-20 14:01] LABS: BILIRUBIN,URINE NEGATIVE (NEGATIVE); CLARITY,URINE SL CLOUDY; COLOR,URINE BROWN; GLUCOSE, URINE (UA) NEGATIVE (NEGATIVE); KETONES,URINE NEGATIVE (NEGATIVE); LEUKOCYTE ESTERASE ,URINE 1+ (NEGATIVE); NITRITE,URINE POSITIVE (NEGATIVE); PROTEIN,URINE 2+ (NEGATIVE)
[2021-07-20 14:10] LABS: BACTERIA,URINE LARGE /HPF; RBC,URINE >100 /HPF; WBC,URINE 25-50 /HPF
[2021-07-20 14:11] LABS: AMORPHOUS SEDIMENT,UR FEW AMOR URATES /LPF
[2021-07-20 14:33] LABS: BASOPHILS # (AUTO) 0.1 10^3/uL (0.0-0.1); BASOPHILS % (AUTO) 1 % (0-10); EOSINOPHILS # (AUTO) 0.1 10^3/uL (0.0-0.3); EOSINOPHILS % (AUTO) 2 % (0-10); HEMATOCRIT 35 % (40-54); HEMOGLOBIN 11.1 g/dL (13.3-17.7); LYMPHOCYTES # (AUTO) 1.4 X 10^3 (1.0-4.0); LYMPHOCYTES % (AUTO) 18 % (12-44); MEAN CORPUSCULAR HEMOGLOBIN 28 pg (25-34); MEAN CORPUSCULAR HGB CONC 32 g/dL (32-36); MEAN CORPUSCULAR VOLUME 86 fL (80-99); MONOCYTES # (AUTO) 0.5 X 10^3 (0.0-1.0); MONOCYTES % (AUTO) 6 % (0-12); NEUTROPHILS # (AUTO) 5.9 X 10^3 (1.8-7.8); NEUTROPHILS % (AUTO) 74 % (42-75); PLATELET COUNT 289 10^3/uL (130-400)
[2021-07-20 14:39] LABS: ALBUMIN 3.7 GM/DL (3.2-4.5); POTASSIUM 3.9 MMOL/L (3.6-5.0)
[2021-07-20 14:41] LABS: CALCIUM 8.8 MG/DL (8.5-10.1)
[2021-07-20 14:42] LABS: TOTAL PROTEIN 6.3 GM/DL (6.4-8.2)
[2021-07-20 14:44] LABS: BILIRUBIN,TOTAL 0.4 MG/DL (0.1-1.0)
[2021-07-20 14:45] LABS: CREATININE SERUM 0.8 MG/DL (0.60-1.30)
[2021-07-20] MEDS ORDERED: CEPH500T PO (15:00)
== END 2021-07-20 15:05 | disposition home or self-care (01) ==
LOC: EDUNIT# 13:29 → ER 13:30
DX: N39.0 Urinary tract infection, site not specified (principal)
CPT/HCPCS: 36415; 80053; 81000; 85025; 87077; 87088; 87186

== ENCOUNTER 2021-08-02 13:15 | Emergency (ER) | payer MEDICARE, MEDICAID ==
[~2021-08-02] VITALS: Ht 170 cm; Wt 88.0 kg
[~2021-08-02 13:15] MED LIST changes: +CEPH500T PO
--- NOTE | 2021-08-02 13:51 | ED General ---
General Chief Complaint: General Problems/Pain Stated Complaint: WEAKNESS Nursing Triage Note: PT TO ED BY EMS FROM [facility] WITH C/O WEAKNESS. EMS REPORTS PT WAS WEAK/LETHARGIC AT 1230 AND HAD A WITNESSED FALL AT 1250. PT "KNEES BUCKLED," DID NOT HIT HEAD. PT IS NONVERBAL BASELINE. [facility] STAFF AT PT BEDSIDE, REPORTS PT HAS BEEN HAVING WEAKNESS AND LEANING TO THE LEFT WHEN AMBULATING "FOR AWHILE NOW." WHEN PT ASKED IF HE HURTS ANYWHERE, HE POINTS TO CATHETER BAG. Source of Information: Caregiver, Old Records Exam Limitations: Other (mental impairments ) History of Present Illness Date Seen by Provider: Aug 02, 2021 Time Seen by Provider: 13:39 Initial Comments This is a 71-year-old intellectually disabled adult who presented to the ER via [facility] with increasing weakness and lethargy that started around 1230 this afternoon. He had a witnessed fall at 1250 patient was reported to have his knees buckle however staff was behind him is able to control the fall. He did not hit his head or neck, no loss of consciousness. Patient is typically nonverbal at baseline and is unable to verbalize any complaints at this time. While inspecting the Cotter catheter he was stating "ow". Is a service center assistant states that he typically complains of his chronic Cotter catheter and occasionally he will even attempt to pull on this. Allergies and Home Medications Allergies Coded Allergies: ibuprofen (Unverified Allergy, Mild, 06/04/09) Patient Home Medication List Acetaminophen (Tylenol) 325 Mg Capsule, 650 MG PO Q4H PRN for PAIN-MILD (1-4) OR TEMPATURE, (Reported) Entered as Reported by: FREDERIC FISCHER on 05/17/21 154 Aripiprazole (Aripiprazole) 10 Mg Tablet, 5 MG PO BID, (Reported) Entered as Reported by: FREDERIC FISCHER on 05/17/21 154 Bethanechol Chloride (Bethanechol Chloride) 25 Mg Tablet, 25 MG PO QID, (Reported) Entered as Reported by: FREDERIC FISCHER on 05/17/21 154 Calcium Carbonate (Tums Freshers) 200 Mg Tab.chew, 500 MG PO UD PRN for INDIGESTION, (Reported) Entered as Reported by: FREDERIC FISCHER on 05/17/21 1544 Cephalexin (Cephalexin) 500 Mg Tablet, 500 MG PO TID Prescribed by: YUN CHEN on 07/20/21 1500 Clonazepam (Clonazepam) 1 Mg Tablet, 1 MG PO BID, (Reported) Entered as Reported by: FREDERIC FISCHER on 05/17/211544 Docusate Sodium (Docusate Sodium) 100 Mg Capsule, 200 MG PO HS PRN for CONSTIPATION-1ST LINE, (Reported) Entered as Reported by: FREDERIC FISCHER on 05/17/211544 Finasteride (Finasteride) 5 Mg Tablet, 5 MG PO HS, (Reported) Entered as Reported by: FREDERIC FISCHER on 05/17/211544 Guaifenesin/Dextromethorphan (Guaifenesin Dm Syrup) 5 Ml Syrup, 10 ML PO Q6H PRN for COUGH, (Reported) Entered as Reported by: FREDERIC FISCHER on 05/17/211544 Hydrocortisone (Cortizone-10) 28 Gm Cream..g., 1 APPLIC TP Q8H PRN for RASH, (Reported) Entered as Reported by: FREDERIC FISCHER on 05/17/211544 Levothyroxine Sodium (Levothyroxine Sodium) 50 Mcg Tablet, 50 MCG PO DAILY, (Reported) Entered as Reported by: FREDERIC FISCHER on 05/17/211544 Loperamide HCl (Imodium A-D) 2 Mg Capsule, 2-4 MG PO UD PRN for DIARRHEA, (Reported) Entered as Reported by: FREDERIC FISCHER on 05/17/211544 Loratadine (Loratadine) 10 Mg Tablet, 10 MG PO DAILY, (Reported) Entered as Reported by: FREDERIC FISCHER on 05/17/211544 Magnesium Hydroxide (Milk of Magnesia) 400 Mg/5 Ml Oral.susp, 30 ML PO Q12H PRN for CONSTIPATION-7TH LINE, (Reported) Entered as Reported by: FREDERIC FISCHER on 05/17/211544 Melatonin (Melatonin) 10 Mg Tablet, 10 MG PO HS, (Reported) Entered as Reported by: FREDERIC FISCHER on 05/17/211544 Montelukast Sodium (Montelukast Sodium) 10 Mg Tablet, 10 MG PO HS, (Reported) Entered as Reported by: FREDERIC FISCHER on 05/17/21 154 Olanzapine (Olanzapine) 10 Mg Tablet, 10 MG PO DAILY, (Reported) Entered as Reported by: FREDERIC FISCHER on 05/17/211544 Polyethylene Glycol 3350 ([id number]) 238 Gm Powder, 17 GM PO DAILY, (Reported) Entered as Reported by: FREDERCI FISCHER on 05/17/21 154 Sertraline HCl (Sertraline HCl) 50 Mg Tablet, 50 MG PO HS, (Reported) Entered as Reported by: FREDERIC FISCHER on 05/17/21 154 Simvastatin (Simvastatin) 10 Mg Tablet, 10 MG PO HS, (Reported) Entered as Reported by: FREDERIC FISCHER on 05/17/211544 Sulfamethoxazole/Trimethoprim (Bactrim Ds Tablet) 1 Each Tablet, 1 EACH PO BID Prescribed by: FRITZ LECHUGA on 05/18/21 104 Tamsulosin HCl (Flomax) 0.4 Mg Cap, 0.4 MG PO BID, (Reported) Entered as Reported by: FREDERIC FISCHER on 05/17/211544 Tetrahydrozoline HCl (Tetrahydrozoline HCl) 15 Ml Drops, 2 DROP OU Q6H PRN for DRY EYES, (Reported) Entered as Reported by: FREDERIC FISCHER on 05/17/211544 Wheat Dextrin (Benefiber) 1 Each Powd.pack, 1 EACH PO DAILY PRN for CONSTIPATION, (Reported) Entered as Reported by: FREDERIC FISCHER on 05/17/211544 Past Tfjpzfz-Cmkpaz-Epxqgx Hx Patient Social History Tobacco Use?: No Use of E-Cig and/or Vaping dev: No Substance use?: No Alcohol Use?: No Pt feels they are or have been: Unable to obtain Immunizations Up To Date First/Initial COVID19 Vaccinat: 04/08/20 Second COVID19 Vaccination Kvng: 05/06/20 Third COVID19 Vaccination Date: may 06 COVID19 Vaccine Duco Polisher: BILLIE Past Medical History Surgery/Hospitalization HX: pmh:urine retention, high chol, depression, anxiety, mental retardation Surgeries: No Respiratory: No Cardiac: Yes High Cholesterol Neurological: Yes (Intellectual disability) Developmental Disorder Genitourinary: Yes (Urinary retention) Prostate Problems Gastrointestinal: No Musculoskeletal: No Endocrine: Yes Hypothyroidsim HEENT: No Cancer: No Did You Recieve Any Treatments: No Psychosocial: Yes Sleep Difficulties, Anxiety, Depression Integumentary: No Physical Exam Vital Signs Vital Signs - First Documented 08/02/21 13:21 Temp 36.3 Pulse 93 Resp 16 B/P (MAP) 121/75 (90) Pulse Ox 94 O2 Delivery Room Air Capillary Refill : Less Than 3 Seconds Height, Weight, BMI Height: '" Weight: lbs. oz. kg; 30.00 BMI Method:Stated Progress/Results/Core Measures Suspected Sepsis SIRS Temperature: Pulse: 93 Respiratory Rate: 16 Laboratory Tests 08/02/21 13:27: White Blood Count 11.5H Blood Pressure 121 /75 Mean: 90 Laboratory Tests 08/02/21 13:27: Creatinine 0.80, Platelet Count 250, Total Bilirubin 0.6 Results/Orders Lab Results Laboratory Tests Test 08/02/21 13:27 08/02/21 14:30 Range/Units White Blood Count 11.5 H 4.3-11.0 10^3/uL Red Blood Count 4.35 4.30-5.52 10^6/uL Hemoglobin 12.1 L 13.3-17.7 g/dL Hematocrit 38 L 40-54 % Mean Corpuscular Volume 88 80-99 fL Mean Corpuscular Hemoglobin 28 25-34 pg Mean Corpuscular Hemoglobin Concent 32 32-36 g/dL Red Cell Distribution Width 15.6 H 10.0-14.5 % Platelet Count 250 130-400 10^3/uL Mean Platelet Volume 9.6 9.0-12.2 fL Immature Granulocyte % (Auto) 0 % Neutrophils (%) (Auto) 88 H 42-75 % Lymphocytes (%) (Auto) 7 L 12-44 % Monocytes (%) (Auto) 3 0-12 % Eosinophils (%) (Auto) 0 0-10 % Basophils (%) (Auto) 0 0-10 % Neutrophils # (Auto) 10.1 H 1.8-7.8 10^3/uL Lymphocytes # (Auto) 0.9 L 1.0-4.0 10^3/uL Monocytes # (Auto) 0.4 0.0-1.0 10^3/uL Eosinophils # (Auto) 0.0 0.0-0.3 10^3/uL Basophils # (Auto) 0.1 0.0-0.1 10^3/uL Immature Granulocyte # (Auto) 0.0 0.0-0.1 10^3/uL Neutrophils % (Manual) 80 % Lymphocytes % (Manual) 13 % Monocytes % (Manual) 7 % Blood Morphology Comment NORMAL Sodium Level 142 135-145 MMOL/L Potassium Level 4.2 3.6-5.0 MMOL/L Chloride Level 106 98-107 MMOL/L Carbon Dioxide Level 22 21-32 MMOL/L Anion Gap 14 5-14 MMOL/L Blood Urea Nitrogen 19 H 7-18 MG/DL Creatinine 0.80 0.60-1.30 MG/DL Estimat Glomerular Filtration Rate 95 BUN/Creatinine Ratio 24 Glucose Level 130 H 70-105 MG/DL Calcium Level 8.9 8.5-10.1 MG/DL Corrected Calcium 9.1 8.5-10.1 MG/DL Total Bilirubin 0.6 0.1-1.0 MG/DL Aspartate Amino Transf (AST/SGOT) 40 H 5-34 U/L Alanine Aminotransferase (ALT/SGPT) 32 0-55 U/L Alkaline Phosphatase 84 40-136 U/L Total Protein 6.6 6.4-8.2 GM/DL Albumin 3.8 3.2-4.5 GM/DL Thyroid Stimulating Hormone (TSH) 0.85 0.35-4.94 UIU/ML Urine Color ORANGE Urine Clarity CLOUDY Urine pH 6.0 5-9 Urine Specific [employer] 1.025 H 1.016-1.022 Urine Protein 2+ H NEGATIVE Urine Glucose (UA) NEGATIVE NEGATIVE Urine Ketones NEGATIVE NEGATIVE Urine Nitrite POSITIVE H NEGATIVE Urine Bilirubin NEGATIVE NEGATIVE Urine Urobilinogen 1.0 < = 1.0 MG/DL Urine Leukocyte Esterase 1+ H NEGATIVE Urine RBC (Auto) 3+ H NEGATIVE Urine RBC TNTC H /HPF Urine WBC 25-50 H /HPF Urine Crystals NONE /LPF Urine Bacteria MODERATE H /HPF Urine Casts NONE /LPF Urine Mucus NEGATIVE /LPF Urine Culture Indicated YES My Orders Orders - KLAUS OM[address] ROLLER ENGINEER Cbc With Automated Diff (08/02/21 13:49) Comprehensive Metabolic Panel (08/02/21 13:49) Ua Culture If Indicated (08/02/21 13:49) Thyroid Stimulating Hormone (08/02/21 13:49) Manual Differential (08/02/21 13:27) Urine Culture (08/02/21 14:30) Vital Signs/I&O 08/02/21 13:21 Temp 36.3 Pulse 93 Resp 16 B/P (MAP) 121/75 (90) Pulse Ox 94 O2 Delivery Room Air Capillary Refill : Less Than 3 Seconds Blood Pressure Mean: 90 Departure Impression Primary Impression: Urinary tract infection Disposition: 01 HOME, SELF-CARE Condition: Stable Departure-Patient Inst. Decision time for Depature: 15:04 Referrals: WADE ALEJANDRO DO (PCP/Family) Primary Care Physician Patient Instructions: Urinary Tract Infection, Adult (DC) Add. Discharge Instructions: Plan: 1. Take antibiotics as directed and complete full course. 2. Encourage plenty of fluids to stay hydrated. 3. Follow up with primary care provider next week. 4. Return for any new, concerning, or worsening symptoms. All discharge instructions reviewed with patient and/or family. Voiced understanding. Scripts Cefuroxime Axetil (Cefuroxime) 250 Mg Tablet 250 MG PO BID for 10 Days, #20 TAB 0 Refills Prov: KLAUS OM[address] ROLLER ENGINEER 08/02/[address] ROLLER ENGINEER Aug 02, 2021 13:51
[2021-08-02 13:56] LABS: BASOPHILS # (AUTO) 0.1 10^3/uL (0.0-0.1); BASOPHILS % (AUTO) 0 % (0-10); EOSINOPHILS % (AUTO) 0 % (0-10); HEMATOCRIT 38 % (40-54); HEMOGLOBIN 12.1 g/dL (13.3-17.7); LYMPHOCYTES # (AUTO) 0.9 10^3/uL (1.0-4.0); LYMPHOCYTES % (AUTO) 7 % (12-44); MEAN CORPUSCULAR HEMOGLOBIN 28 pg (25-34); MEAN CORPUSCULAR HGB CONC 32 g/dL (32-36); MEAN CORPUSCULAR VOLUME 88 fL (80-99); MEAN PLATELET VOLUME 9.6 fL (9.0-12.2); MONOCYTES # (AUTO) 0.4 10^3/uL (0.0-1.0); MONOCYTES % (AUTO) 3 % (0-12); NEUTROPHILS # (AUTO) 10.1 10^3/uL (1.8-7.8); NEUTROPHILS % (AUTO) 88 % (42-75); PLATELET COUNT 250 10^3/uL (130-400); WHITE BLOOD COUNT 11.5 10^3/uL (4.3-11.0)
[2021-08-02 13:58] LABS: ALBUMIN 3.8 GM/DL (3.2-4.5); POTASSIUM 4.2 MMOL/L (3.6-5.0)
[2021-08-02 13:59] LABS: CALCIUM 8.9 MG/DL (8.5-10.1)
[2021-08-02 14:00] LABS: TOTAL PROTEIN 6.6 GM/DL (6.4-8.2)
[2021-08-02 14:02] LABS: BILIRUBIN,TOTAL 0.6 MG/DL (0.1-1.0)
[2021-08-02 14:04] LABS: CREATININE SERUM 0.8 MG/DL (0.60-1.30)
[2021-08-02 14:10] LABS: LYMPHOCYTES % (MANUAL) 13 %; MONOCYTES % (MANUAL) 7 %; NEUTROPHILS % (MANUAL) 80 %; RBC MORPH NORMAL
[2021-08-02 14:36] LABS: BILIRUBIN,URINE NEGATIVE (NEGATIVE); CLARITY,URINE CLOUDY; COLOR,URINE ORANGE; GLUCOSE, URINE (UA) NEGATIVE (NEGATIVE); KETONES,URINE NEGATIVE (NEGATIVE); LEUKOCYTE ESTERASE ,URINE 1+ (NEGATIVE); NITRITE,URINE POSITIVE (NEGATIVE); PROTEIN,URINE 2+ (NEGATIVE)
[2021-08-02 14:52] LABS: BACTERIA,URINE MODERATE /HPF; RBC,URINE TNTC /HPF; WBC,URINE 25-50 /HPF
[2021-08-02] MEDS ORDERED: CEFU250T80 PO (15:08)
[2021-08-02] MEDS ORDERED: cefTRIAXone 1 GM PRE-MIX 50 ML IV ONE (15:15)
[2021-08-02 15:50] VITALS: BP 137/80
== END 2021-08-02 15:53 | disposition home or self-care (01) ==
LOC: EDUNIT# 13:15 → ER 13:20
DX: N39.0 Urinary tract infection, site not specified (principal)
CPT/HCPCS: 36415; 80053; 81000; 84443; 85007; 85027; 87077; 87088; 87186; 99283

== ENCOUNTER → 2021-08-15 | Outpatient (CLI) | payer MEDICARE, MEDICAID ==
[~2021-08-15] MED LIST changes: +CEFU250T80 PO
[2021-08-15 11:02] LABS: BILIRUBIN,URINE NEGATIVE (NEGATIVE); CLARITY,URINE SL CLOUDY; COLOR,URINE YELLOW; GLUCOSE, URINE (UA) NEGATIVE (NEGATIVE); KETONES,URINE NEGATIVE (NEGATIVE); LEUKOCYTE ESTERASE ,URINE TRACE (NEGATIVE); NITRITE,URINE POSITIVE (NEGATIVE); PROTEIN,URINE 1+ (NEGATIVE)
[2021-08-15 11:03] LABS: HEMATOCRIT 36 % (40-54); HEMOGLOBIN 11.4 g/dL (13.3-17.7); MEAN CORPUSCULAR HEMOGLOBIN 28 pg (25-34); MEAN CORPUSCULAR HGB CONC 31 g/dL (32-36); MEAN CORPUSCULAR VOLUME 89 fL (80-99); MEAN PLATELET VOLUME 8.7 fL (9.0-12.2); PLATELET COUNT 352 10^3/uL (130-400); WHITE BLOOD COUNT 9.7 10^3/uL (4.3-11.0)
[2021-08-15 11:05] LABS: ALBUMIN 3.6 GM/DL (3.2-4.5); POTASSIUM 4.2 MMOL/L (3.6-5.0)
[2021-08-15 11:07] LABS: CALCIUM 8.7 MG/DL (8.5-10.1)
[2021-08-15 11:08] LABS: TOTAL PROTEIN 6.4 GM/DL (6.4-8.2)
[2021-08-15 11:10] LABS: BILIRUBIN,TOTAL 0.6 MG/DL (0.1-1.0)
[2021-08-15 11:11] LABS: CREATININE SERUM 0.75 MG/DL (0.60-1.30)
[2021-08-15 11:12] LABS: AMORPHOUS SEDIMENT,UR FEW AMOR URATES /LPF; BACTERIA,URINE FEW /HPF; CALCIUM OXALATE CRYSTALS,UR RARE /LPF
--- NOTE | 2021-08-15 12:55 | Diagnostic Imaging Report ---
INDICATION: Shortness of air. TIME OF EXAM: 11:14 AM Correlation is made with prior chest from 05/23/2021. FINDINGS: The heart is enlarged, but stable. There appears to be some infiltrate or atelectasis in left base. Right lung appears clear. No effusion or pneumothorax is seen. IMPRESSION: Findings suggestive of minimal left basilar infiltrate or atelectasis. Dictated by: Dictated on workstation # [id number]
== END ==
LOC: RAD 10:43
PROVIDERS: ATTEND Family Medicine
DX: R06.02 Shortness of breath (principal); E03.9 Hypothyroidism, unspecified; N39.0 Urinary tract infection, site not specified
CPT/HCPCS: 36415; 71045; 80053; 81000; 83880; 84443; 85027; 87077; 87088

== ENCOUNTER → 2021-08-28 | Outpatient (CLI) | payer MEDICARE, MEDICAID ==
--- NOTE | 2021-08-28 14:09 | Diagnostic Imaging Report ---
PROCEDURE: US right lower extremity venous. TECHNIQUE: Multiple real-time grayscale images were obtained over the right lower extremity in various projections. Additional spectral analysis and color Doppler duplex images were also obtained. INDICATION: Right lower extremity swelling. There is no evidence of right lower extremity DVT. Right lower extremity deep venous system shows normal compressibility with normal response to augmentation and Valsalva. No fluid collection or mass is detected. IMPRESSION: No evidence of right lower extremity DVT. Dictated by: Dictated on workstation # [id number]
== END ==
LOC: RAD 13:23
PROVIDERS: ATTEND Family Medicine
DX: R22.41 Localized swelling, mass and lump, right lower limb (principal)

== ENCOUNTER → 2021-09-07 | Outpatient (CLI) | payer MEDICARE, MEDICAID ==
--- NOTE | 2021-09-07 15:19 | Diagnostic Imaging Report ---
INDICATION: Swelling the left side of the back. Sonographic interrogation of the area of swelling posterior left back was performed. No sonographic abnormality is seen. No solid or cystic mass is detected. IMPRESSION: No sonographic abnormality is detected. Dictated by: Dictated on workstation # [id number]
== END ==
LOC: RAD 14:27
PROVIDERS: ATTEND Family Medicine
DX: R22.2 Localized swelling, mass and lump, trunk (principal)
CPT/HCPCS: 76999

== ENCOUNTER → 2021-10-26 | Outpatient (CLI) | payer MEDICARE, MEDICAID ==
--- NOTE | 2021-10-26 15:40 | Diagnostic Imaging Report ---
INDICATION: Facial trauma. EXAMINATION: Nasal bones. FINDINGS: AP and lateral views of the nasal bones do not show any displaced fractures. IMPRESSION: Unremarkable nasal bones. Dictated by: Dictated on workstation # [id number]
== END ==
LOC: RAD 11:15
PROVIDERS: ATTEND Family Medicine
DX: S09.92XA Unspecified injury of nose, initial encounter (principal); W19.XXXA Unspecified fall, initial encounter
CPT/HCPCS: 70160

== ENCOUNTER 2021-11-13 16:18 | Emergency (ER) | payer MEDICARE, MEDICAID ==
[2021-11-13] MEDS ORDERED: fentaNYL INJ 100 MCG/2 ML AMP IVP ONE (17:00)
[2021-11-13 17:07] LABS: CALCIUM 9.1 MG/DL (8.5-10.1)
[2021-11-13 17:11] LABS: CREATININE SERUM 0.83 MG/DL (0.60-1.30)
--- NOTE | 2021-11-13 17:14 | ED General ---
General Chief Complaint: - Reproductive Stated Complaint: SOB,CATHETER ISSUES Nursing Triage Note: PT TO [facility] BY WC WITH C/O SHAKINESS, SOB, INCREASED EDEMA AND CATHETER NOT DRAINING PROPERLY. PTS CREATIVE SERVICES MANAGER STATES THE CATHETER HAS NOT PROPERLY DRAINED SINCE SATURDAY. PT IS NONVERBAL Source of Information: Caregiver Exam Limitations: Other (caregiver has only known pt for three weeks and provides limited history) (ANDI HOUSER A MED STUDENT) History of Present Illness Date Seen by Provider: Nov 13, 2021 Time Seen by Provider: 17:00 Initial Comments Cameron Guzman is a 71 yo nonverbal male who was brought in by his caregiver from [facility] for concerns of urinary retention d/t catheter issues. Caregiver has only worked at facility for 3 weeks, so she provided a limited hx. She states to her knowledge the pt was given a babb catheter d/t urinary retention and follows up with Dr. Woods for urinary concerns. She states the catheter had not been changed in 4-5 months at one point and was just recently changed last week. Over the weekend the [facility] workers reported the pt had no urine output and today he began to exhibit signs of pain, so they brought him to the ED. Caregiver states that the urinary catheter care has been suboptimal d/t lack of knowledge on how to care for catheter. When she came in today the pt had smegma on the head of the penis. She states the catheter was leaking when she tried to remove it. Upon bladder scanning pt there was 737mL of urine in the bladder. The pt is visibly uncomfortable and writhing in the bed. He is diaphoretic and has edematous lower extremities. He is hypertensive and tachycardic. Pt will moan when you ask if he is in pain, but does not verbalize where the pain is. Timing/Duration: 4-5 Days (ANDI HOSUER A MED STUDENT) Allergies and Home Medications Allergies Coded Allergies: ibuprofen (Unverified Allergy, Mild, 06/04/09) Patient Home Medication List Home Medication List Reviewed: Yes (KATHY KAHN MD) Acetaminophen (Tylenol) 325 Mg Capsule, 650 MG PO Q4H PRN for PAIN-MILD (1-4) OR TEMPATURE, (Reported) Entered as Reported by: FREDERIC FISCHER on 05/17/21 9932 Aripiprazole (Aripiprazole) 10 Mg Tablet, 5 MG PO BID, (Reported) Entered as Reported by: FREDERIC FISCHER on 05/17/21 154 Bethanechol Chloride (Bethanechol Chloride) 25 Mg Tablet, 25 MG PO QID, (Reported) Entered as Reported by: FREDERIC FISCHER on 05/17/211544 Calcium Carbonate (Tums [place]) 200 Mg Tab.chew, 500 MG PO UD PRN for INDIGEST ION, (Reported) Entered as Reported by: FREDERIC FISCHER on 05/17/211544 Cefuroxime Axetil (Cefuroxime) 250 Mg Tablet, 250 MG PO BID Prescribed by: KLAUS OMER on 08/02/21 1508 Cephalexin (Cephalexin) 500 Mg Tablet, 500 MG PO TID Prescribed by: YUN CHEN on 07/20/21 1500 Ciprofloxacin HCl (Ciprofloxacin HCl) 500 Mg Tablet, 500 MG PO BID Prescribed by: KATHY KAHN on 11/13/21 1738 Clonazepam (Clonazepam) 1 Mg Tablet, 1 MG PO BID, (Reported) Entered as Reported by: FREDERIC FISCHER on 05/17/211544 Docusate Sodium (Docusate Sodium) 100 Mg Capsule, 200 MG PO HS PRN for CONSTI PATION-1ST LINE, (Reported) Entered as Reported by: FREDERIC FISCHER on 05/17/211544 Finasteride (Finasteride) 5 Mg Tablet, 5 MG PO HS, (Reported) Entered as Reported by: FREDERIC FISCHER on 05/17/211544 Guaifenesin/Dextromethorphan (Guaifenesin Dm Syrup) 5 Ml Syrup, 10 ML PO Q6H PRN for COUGH, (Reported) Entered as Reported by: FREDERIC FISCHER on 05/17/211544 Hydrocortisone (Cortizone-10) 28 Gm Cream..g., 1 APPLIC TP Q8H PRN for RASH, (Reported) Entered as Reported by: FREDERIC FISCHER on 05/17/211544 Levothyroxine Sodium (Levothyroxine Sodium) 50 Mcg Tablet, 50 MCG PO DAILY, (Reported) Entered as Reported by: FREDERIC FISCHER on 05/17/211544 Loperamide HCl (Imodium A-D) 2 Mg Capsule, 2-4 MG PO UD PRN for DIARRHEA, (Reported) Entered as Reported by: FREDERIC FISCHER on 05/17/211544 Loratadine (Loratadine) 10 Mg Tablet, 10 MG PO DAILY, (Reported) Entered as Reported by: FREDERIC FISCHER on 05/17/211544 Magnesium Hydroxide (Milk of Magnesia) 400 Mg/5 Ml Oral.susp, 30 ML PO Q12H PRN for CONSTIPATION-7TH LINE, (Reported) Entered as Reported by: FREDERIC FISCHER on 05/17/211544 Melatonin (Melatonin) 10 Mg Tablet, 10 MG PO HS, (Reported) Entered as Reported by: FREDERIC FISCHER on 05/17/211544 Montelukast Sodium (Montelukast Sodium) 10 Mg Tablet, 10 MG PO HS, (Reported) Entered as Reported by: FREDERIC FISCHER on 05/17/211544 Olanzapine (Olanzapine) 10 Mg Tablet, 10 MG PO DAILY, (Reported) Entered as Reported by: FREDERIC FISCHER on 05/17/211544 Polyethylene Glycol 3350 ([id number]) 238 Gm Powder, 17 GM PO DAILY, (Reported) Entered as Reported by: FREDERIC FISCHER on 05/17/211544 Sertraline HCl (Sertraline HCl) 50 Mg Tablet, 50 MG PO HS, (Reported) Entered as Reported by: FREDERIC FISCHER on 05/17/211544 Simvastatin (Simvastatin) 10 Mg Tablet, 10 MG PO HS, (Reported) Entered as Reported by: FREDERIC FISCHER on 05/17/211544 Sulfamethoxazole/Trimethoprim (Bactrim Ds Tablet) 1 Each Tablet, 1 EACH PO BID Prescribed by: FRITZ LECHUGA on 05/18/21 104 Tamsulosin HCl (Flomax) 0.4 Mg Cap, 0.4 MG PO BID, (Reported) Entered as Reported by: FREDERIC FISCHER on 05/17/211544 Tetrahydrozoline HCl (Tetrahydrozoline HCl) 15 Ml Drops, 2 DROP OU Q6H PRN for DRY EYES, (Reported) Entered as Reported by: FREDERIC FISCHER on 05/17/211544 Wheat Dextrin (Benefiber) 1 Each Powd.pack, 1 EACH PO DAILY PRN for CONSTIPATION, (Reported) Entered as Reported by: FREDERIC NEWSOMEZANT on 05/17/21 1545 Review of Systems Review of Systems Unable to obtain ROS d/t pt being nonverbal (ANDI HOUSER STUDENT) Constitutional: see HPI (KATHY KAHN MD) Past Ffkzwnh-Rfflmy-Ctiepv Hx Patient Social History Tobacco Use?: No Use of E-Cig and/or Vaping dev: No Substance use?: No Alcohol Use?: No Pt feels they are or have been: No (ANDI HOUSER) Immunizations Up To Date First/Initial COVID19 Vaccinat: 04/08/20 Second COVID19 Vaccination Kvng: 05/06/20 Third COVID19 Vaccination Date: may 06 (ANDI HOUSER) Past Medical History Surgery/Hospitalization HX: pmh:urine retention, high chol, depression, anxiety, mental retardation Surgeries: No Respiratory: No Cardiac: Yes High Cholesterol Neurological: Yes (Intellectual disability) Developmental Disorder Genitourinary: Yes (Urinary retention) Prostate Problems Gastrointestinal: No Musculoskeletal: No Endocrine: Yes Hypothyroidsim HEENT: No Cancer: No Did You Recieve Any Treatments: No Psychosocial: Yes Sleep Difficulties, Anxiety, Depression Integumentary: No (ANDI HOUSER) Physical Exam Vital Signs Vital Signs - First Documented 11/13/21 16:21 Temp 36.3 Pulse 130 Resp 20 B/P (MAP) 179/106 (130) (KATHY KAHN MD) Vital Signs Capillary Refill : (ANDI HOUSER) Height, Weight, BMI Height: '" Weight: lbs. oz. kg; 30.00 BMI Method:Stated General Appearance: Anxious HEENT: PERRL/EOMI, Other (Abrasions noted on face from previous fall) Neck: Full Range of Motion, Normal Inspection Respiratory: Chest Non Tender, Lungs Clear, Normal Breath Sounds Cardiovascular: No Murmur, Tachycardia Gastrointestinal: Normal Bowel Sounds, Non Tender, Soft Extremity: Normal Capillary Refill, Non Tender, Pedal Edema (2+ pitting edema) Neurologic/Psychiatric: Alert, Aphasia, Disoriented Skin: Diaphoresis, Petechia (across dorsum of foot) Lymphatic: No Adenopathy (ANDI HOUSER) Progress/Results/Core Measures Suspected Sepsis SIRS Temperature: Pulse: 130 Respiratory Rate: 20 Blood Pressure 179 /106 Mean: 130 Laboratory Tests 11/13/21 16:29: Creatinine 0.83 (ANDI HOUSER MED STUDENT) Results/Orders Lab Results Laboratory Tests Test 11/13/21 16:29 11/13/21 17:20 Range/Units Sodium Level 142 135-145 MMOL/L Potassium Level 4.0 3.6-5.0 MMOL/L Chloride Level 106 98-107 MMOL/L Carbon Dioxide Level 22 21-32 MMOL/L Anion Gap 14 5-14 MMOL/L Blood Urea Nitrogen 18 7-18 MG/DL Creatinine 0.83 0.60-1.30 MG/DL Estimat Glomerular Filtration Rate 94 BUN/Creatinine Ratio 22 Glucose Level 148 H 70-105 MG/DL Calcium Level 9.1 8.5-10.1 MG/DL Urine Color YELLOW Urine Clarity CLEAR Urine pH 7.0 5-9 Urine Specific [place] 1.020 1.016-1.022 Urine Protein 1+ H NEGATIVE Urine Glucose (UA) NEGATIVE NEGATIVE Urine Ketones NEGATIVE NEGATIVE Urine Nitrite POSITIVE H NEGATIVE Urine Bilirubin NEGATIVE NEGATIVE Urine Urobilinogen 0.2 < = 1.0 MG/DL Urine Leukocyte Esterase 3+ H NEGATIVE Urine RBC (Auto) 1+ H NEGATIVE Urine RBC 2-5 H /HPF Urine WBC 25-50 H /HPF Urine Squamous Epithelial Cells NONE /HPF Urine Crystals NONE /LPF Urine Bacteria MODERATE H /HPF Urine Casts NONE /LPF Urine Mucus NEGATIVE /LPF Urine Culture Indicated YES (KATHY KAHN MD) My Orders Orders - KATHY KAHN MD Ekg Tracing (11/13/21 16:26) Fentanyl Inj (Sublimaze Injection) (11/13/21 17:00) Ua Culture If Indicated (11/13/21 16:58) Basic Metabolic Panel (11/13/21 16:58) Urine Culture (11/13/21 17:20) (KATHY KAHN MD) Medications Given in ED (KATHY KAHN MD) Vital Signs/I&O 11/13/21 11/13/21 16:21 17:57 Temp 36.3 36.3 Pulse 130 95 Resp 20 18 B/P (MAP) 179/106 (130) 149/93 (KATHY KAHN MD) Vital Signs/I&O Capillary Refill : (ANDI HOUSER MED STUDENT) Blood Pressure Mean: 130 Progress Note : Time: 17:32 Progress Note 71 yo male to the ER agitated, upset, no urine output "all weekend" per caregiver at the bedside. chronic in dwelling babb that was changed just before getting to the ED. Slightly decreased appetite. no fevers. no vomiting. PE remarkable for distended lower abdomen, tender to palpation (consistent with urinary retention). Lungs clear. At normal mental baseline. After babb exchanged - he is considerably more calm and comfortable. HR improved. Abdomen soft. SHIRLEY Barrera stated about 20ml of pure mucous, pus came out with original babb (likely clogging the tube). he had significant smegma as a result of not appropriate cleaning at his facility - he was cleaned thoro ughly. Will start on some cipro pending cultures. (KATHY KAHN MD) ECG Initial ECG Impression Date: Nov 13, 2021 Initial ECG Impression Time: 17:39 Initial ECG Rate: 129 Initial ECG Rhythm: S.Tach Initial ECG Intervals: Normal Initial ECG Impression: Normal (ANDI HOUSER MED STUDENT) Departure Impression Primary Impression: Acute urinary retention Additional Impression: Urinary tract infection Qualified Codes: T83.511A - Infection and inflammatory reaction due to indwelling urethral catheter, initial encounter; N39.0 - Urinary tract infection, site not specified Disposition: 01 HOME, SELF-CARE Condition: Stable Departure-Patient Inst. Decision time for Depature: 17:36 (KATHY KAHN MD) Referrals: WADE ALEJANDRO DO (PCP/Family) Primary Care Physician Patient Instructions: Urinary Tract Infection, Adult (DC) Add. Discharge Instructions: Antibiotics Cipro 500mg twice a day for 10 days. Cultures are pending. Encourage fluids so that he stays well hydrated. Please maintain GOOD care of the catheter and ensure he is being cleaned daily. Return to the ER for further evaluation if he develops fever, pain vomiting or any other emergent concerning symptoms. Scripts Ciprofloxacin HCl (Ciprofloxacin HCl) 500 Mg Tablet 500 MG PO BID for 10 Days, #20 TAB Prov: KATHY KAHN MD 11/13/21 Verification and Attestation of Medical Student E/M Service A medical student performed and documented this service in my presence. I reviewed and verified all information documented by the medical student and made modifications to such information, when appropriate. I personally performed the physical exam and medical decision making. Kathy Kahn, Nov 14, 2021,06:14 (KATHY KAHN MD) ANDI HOUSER MED STUDENT Nov 13, 2021 17:14 KATHY KAHN MD Nov 13, 2021 17:38
[2021-11-13 17:22] LABS: BILIRUBIN,URINE NEGATIVE (NEGATIVE); CLARITY,URINE CLEAR; COLOR,URINE YELLOW; GLUCOSE, URINE (UA) NEGATIVE (NEGATIVE); KETONES,URINE NEGATIVE (NEGATIVE); LEUKOCYTE ESTERASE ,URINE 3+ (NEGATIVE); NITRITE,URINE POSITIVE (NEGATIVE); PROTEIN,URINE 1+ (NEGATIVE)
[2021-11-13 17:29] LABS: BACTERIA,URINE MODERATE /HPF; WBC,URINE 25-50 /HPF
[2021-11-13] MEDS ORDERED: CIPR500T5 PO (17:38)
[2021-11-13 17:57] VITALS: BP 149/93
[2021-11-14] MEDS ORDERED: TRAZ-227 (22:06)
[2021-11-14] MEDS ORDERED: AMOX1TAB12 (22:06)
[2021-11-14] MEDS ORDERED: FURO20TA4 (22:06)
== END 2021-11-13 18:00 | disposition home or self-care (01) ==
LOC: EDUNIT# 16:18 → ER 16:20
DX: N39.0 Urinary tract infection, site not specified (principal); Z96.0 Presence of urogenital implants
CPT/HCPCS: 36415; 51702; 80048; 81000; 87077; 87088; 87186; 93005

== ENCOUNTER 2021-11-14 21:34 | Emergency (ER) | payer MEDICARE, MEDICAID ==
[~2021-11-14] VITALS: Ht 170 cm; Wt 82.0 kg
[~2021-11-14 21:34] MED LIST changes: +CIPR500T5 PO
[2021-11-14 22:00] VITALS: BP 120/71
[2021-11-14] MEDS ORDERED: FURO20TA4 (22:06)
[2021-11-14] MEDS ORDERED: TRAZ-227 (22:06)
[2021-11-14] MEDS ORDERED: AMOX1TAB12 (22:06)
[2021-11-14 22:26] LABS: BASOPHILS # (AUTO) 0.1 10^3/uL (0.0-0.1); BASOPHILS % (AUTO) 1 % (0-10); EOSINOPHILS # (AUTO) 0.2 10^3/uL (0.0-0.3); EOSINOPHILS % (AUTO) 3 % (0-10); HEMATOCRIT 35 % (40-54); HEMOGLOBIN 11.2 g/dL (13.3-17.7); LYMPHOCYTES # (AUTO) 2.1 10^3/uL (1.0-4.0); LYMPHOCYTES % (AUTO) 27 % (12-44); MEAN CORPUSCULAR HEMOGLOBIN 28 pg (25-34); MEAN CORPUSCULAR HGB CONC 32 g/dL (32-36); MEAN CORPUSCULAR VOLUME 86 fL (80-99); MEAN PLATELET VOLUME 8.7 fL (9.0-12.2); MONOCYTES # (AUTO) 0.4 10^3/uL (0.0-1.0); MONOCYTES % (AUTO) 6 % (0-12); NEUTROPHILS # (AUTO) 4.9 10^3/uL (1.8-7.8); NEUTROPHILS % (AUTO) 64 % (42-75); PLATELET COUNT 265 10^3/uL (130-400); WHITE BLOOD COUNT 7.7 10^3/uL (4.3-11.0)
[2021-11-14 22:42] LABS: POTASSIUM 4.1 MMOL/L (3.6-5.0)
[2021-11-14 22:43] LABS: PROTHROMBIN TIME PATIENT 13.3 SEC (12.2-14.7)
[2021-11-14 22:44] LABS: CALCIUM 8.9 MG/DL (8.5-10.1)
[2021-11-14 22:48] LABS: CREATININE SERUM 0.82 MG/DL (0.60-1.30)
--- NOTE | 2021-11-14 23:02 | ED GU-Male ---
General Chief Complaint: - Reproductive Stated Complaint: URINATING BLOOD/CATHETER FILLED Nursing Triage Note: VANESSA CHANGED 11/13/21, BROUGHT IN BY CAREGIVER WITH BLOOD IN VANESSA BAG SINCE 2029 TODAY. Source: caregiver Exam Limitations: other (PT IS NON-VERBAL) History of Present Illness Date Seen by Provider: Nov 14, 2021 Time Seen by Provider: 22:00 Initial Comments PT ARRIVES VIA POV WITH A CAREGIVER FROM [place] CAREGIVER IS NEW AND KNOWS LIMITED HISTORY. PT HAS CHRONIC INDWELLING VANESSA CATHETER FOR CHRONIC URINARY RETENTION. PT HAD CATHETER REPLACED BY DR. LOMBARDI LAST WEEK WAS SEEN IN ER YESTERDAY FOR OBSTRUCTED CATHETER, AND NEW ONE WAS PLACED. PT WAS GIVEN RX FOR CIPRO, PT HAD UTI. HAD HIS FIRST DOSE TONIGHT CATHETER HAS BEEN DRAINING FINE TODAY, URINE HAS BEEN CLEAR AND IT WAS EMPTIED AROUND 2100 TONIGHT. STAFF NOTICED A LITTLE BIT OF BLOOD IN URINE AROUND 2030 TONIGHT AND NOW URINE IS GROSSLY BLOODY, BUT CATHETER IS STILL FUNCTIONING AND THERE IS NO LEAKING . NO FEVER NO APPARENT DISCOMFORT NO VOMITING Allergies and Home Medications Allergies Coded Allergies: ibuprofen (Unverified Allergy, Mild, 06/04/09) Patient Home Medication List Home Medication List Reviewed: Yes Acetaminophen (Tylenol) 325 Mg Capsule, 650 MG PO Q4H PRN for PAIN-MILD (1-4) OR TEMPATURE, (Reported) Entered as Reported by: FREDERIC FISCHER on 05/17/21 1545 Amoxicillin/Potassium Clav (Amox Tr-K Clv 875-125 mg Tab) 875 Mg-125 Mg Tablet, (Reported) Entered as Reported by: DAMIAN MARAVILLA on 11/14/212205 Last Action: New Order Aripiprazole (Aripiprazole) 10 Mg Tablet, 5 MG PO BID, (Reported) Entered as Reported by: FREDERIC FISCHER on 05/17/21 1545 Bethanechol Chloride (Bethanechol Chloride) 25 Mg Tablet, 25 MG PO QID, (Reported) Entered as Reported by: FREDERIC FISCHER on 05/17/21 1545 Calcium Carbonate (Tums [place]) 200 Mg Tab.chew, 500 MG PO UD PRN for INDIGESTION, (Reported) Entered as Reported by: FREDERIC FISCHER on 05/17/21 1545 Cefuroxime Axetil (Cefuroxime) 250 Mg Tablet, 250 MG PO BID Prescribed by: KLAUS OMER on 08/02/21 1508 Cephalexin (Cephalexin) 500 Mg Tablet, 500 MG PO TID Prescribed by: UYN CHEN on 07/20/21 1500 Ciprofloxacin HCl (Ciprofloxacin HCl) 500 Mg Tablet, 500 MG PO BID Prescribed by: KATHY KAHN on 11/13/21 1738 Clonazepam (Clonazepam) 1 Mg Tablet, 1 MG PO BID, (Reported) Entered as Reported by: FREDERIC FISCHER on 05/17/21 154 Docusate Sodium (Docusate Sodium) 100 Mg Capsule, 200 MG PO HS PRN for CONSTIPATION-1ST LINE, (Reported) Entered as Reported by: FREDERIC FISCHER on 05/17/21 154 Finasteride (Finasteride) 5 Mg Tablet, 5 MG PO HS, (Reported) Entered as Reported by: FREDERIC FISCHER on 05/17/21 154 Furosemide (Furosemide) 20 Mg Tablet, (Reported) Entered as Reported by: DAMIAN MARAVILLA on 11/14/212205 Last Action: New Order Guaifenesin/Dextromethorphan (Guaifenesin Dm Syrup) 5 Ml Syrup, 10 ML PO Q6H PRN for COUGH, (Reported) Entered as Reported by: FREDERIC FISCHER on 05/17/211544 Hydrocortisone (Cortizone-10) 28 Gm Cream..g., 1 APPLIC TP Q8H PRN for RASH, (Reported) Entered as Reported by: FREDERIC FISCHER on 05/17/211544 Levothyroxine Sodium (Levothyroxine Sodium) 50 Mcg Tablet, 50 MCG PO DAILY, (Reported) Entered as Reported by: FREDERIC FISCHER on 05/17/211544 Loperamide HCl (Imodium A-D) 2 Mg Capsule, 2-4 MG PO UD PRN for DIARRHEA, (Reported) Entered as Reported by: FREDERIC FISCHER on 05/17/211544 Loratadine (Loratadine) 10 Mg Tablet, 10 MG PO DAILY, (Reported) Entered as Reported by: FREDERIC FISCHER on 05/17/211544 Magnesium Hydroxide (Milk of Magnesia) 400 Mg/5 Ml Oral.susp, 30 ML PO Q12H PRN for CONSTIPATION-7TH LINE, (Reported) Entered as Reported by: FREDERIC FISCHER on 05/17/21 154 Melatonin (Melatonin) 10 Mg Tablet, 10 MG PO HS, (Reported) Entered as Reported by: FREDERIC FISCHER on 05/17/211544 Montelukast Sodium (Montelukast Sodium) 10 Mg Tablet, 10 MG PO HS, (Reported) Entered as Reported by: FREDERIC FISCHER on 05/17/211544 Olanzapine (Olanzapine) 10 Mg Tablet, 10 MG PO DAILY, (Reported) Entered as Reported by: FREDERIC FISCHER on 05/17/211544 Polyethylene Glycol 3350 ([id number]) 238 Gm Powder, 17 GM PO DAILY, (Reported) Entered as Reported by: FREDERIC FISCHER on 05/17/211544 Sertraline HCl (Sertraline HCl) 50 Mg Tablet, 50 MG PO HS, (Reported) Entered as Reported by: FREDERIC FISCHER on 05/17/211544 Simvastatin (Simvastatin) 10 Mg Tablet, 10 MG PO HS, (Reported) Entered as Reported by: FREDERIC FISCHER on 05/17/211544 Sulfamethoxazole/Trimethoprim (Bactrim Ds Tablet) 1 Each Tablet, 1 EACH PO BID Prescribed by: FRITZ LECHUGA on 05/18/21 104 Tamsulosin HCl (Flomax) 0.4 Mg Cap, 0.4 MG PO BID, (Reported) Entered as Reported by: FREDERIC FISCHER on 05/17/211544 Tetrahydrozoline HCl (Tetrahydrozoline HCl) 15 Ml Drops, 2 DROP OU Q6H PRN for DRY EYES, (Reported) Entered as Reported by: FREDERIC FISCHER on 05/17/211544 Trazodone HCl (Trazodone HCl) 100 Mg Tablet, (Reported) Entered as Reported by: DAMIAN MARAVILLA on 11/14/212205 Last Action: New Order Wheat Dextrin (Benefiber) 1 Each Powd.pack, 1 EACH PO DAILY PRN for CONSTIPATION, (Reported) Entered as Reported by: FREDERIC FISCHER on 05/17/211544 Review of Systems Review of Systems Constitutional: see HPI Genitourinary: see HPI Past Fqdewkp-Wyzmns-Vpvssf Hx Patient Social History Tobacco Use?: No Substance use?: No Alcohol Use?: No Pt feels they are or have been: No Immunizations Up To Date First/Initial COVID19 Vaccinat: 04/08/20 Second COVID19 Vaccination Kvng: 05/06/20 Third COVID19 Vaccination Date: may 06 Past Medical History Surgery/Hospitalization HX: pmh:urine retention, high chol, depression, anxiety, mental retardation Surgeries: No Respiratory: No Cardiac: Yes High Cholesterol Neurological: Yes (Intellectual disability; SEVERE MR AND IS NON-VERBAL) Developmental Disorder Genitourinary: Yes (Urinary retention-CHRONIC VANESSA CATHETER ) Prostate Problems Gastrointestinal: No Musculoskeletal: No Endocrine: Yes Hypothyroidsim HEENT: No Cancer: No Did You Recieve Any Treatments: No Psychosocial: Yes Sleep Difficulties, Anxiety, Depression Integumentary: No Physical Exam Vital Signs Vital Signs - First Documented 11/14/21 22:00 Temp 36.1 Pulse 72 Resp 16 B/P (MAP) 120/71 (87) Pulse Ox 100 O2 Delivery Room Air Capillary Refill : Less Than 3 Seconds Height, Weight, BMI Height: '" Weight: lbs. oz. kg; 28.00 BMI Method:Stated General Appearance: WD/WN, no apparent distress, other (DOES NOT APPEAR TO BE IN ANY DISCOMFORT OR DISTRESS. ) Cardiovascular: regular rate, rhythm Respiratory: normal breath sounds Gastrointestinal: non tender, soft Genital/Rectal: other (NO BLOOD OR LEAKAGE AT URETHRAL MEATUS. CATHETER APPEARS TO BE IN PROPER PLACE. CATHETER IS DRAINING GROSSLY BLOODY URINE INTO A REGULAR VNAESSA BAG. CATHETER TUBING IS VERY LONG, AND EXTENDS DOWN HIS LEG AND OUT THE BOTTOM OF THE LEG OF HIS PANTS, AND EXTENDS AT LEAST 18" BEYOND HIS FOOT. THERE IS APPROXIMATELY 150 ML GROSSLY BLOODY URINE IN VANESSA BAG , NO CLOTS. BLADDER IS NON-DISTENDED AND NO APPARENT TENDERNESS. ) Back: no CVA tenderness Neurologic/Psychiatric: alert, other (NON -VERBAL--NORMAL BASELINE) Progress/Results/Core Measures Suspected Sepsis SIRS Temperature: Pulse: 72 Respiratory Rate: 16 Laboratory Tests 11/14/21 22:16: White Blood Count 7.7 Blood Pressure 120 /71 Mean: 87 Laboratory Tests 11/14/21 22:16: Creatinine 0.82, INR Comment 1.0, Platelet Count 265 Results/Orders Lab Results Laboratory Tests Test 11/14/21 22:16 Range/Units White Blood Count 7.7 4.3-11.0 10^3/uL Red Blood Count 4.07 L 4.30-5.52 10^6/uL Hemoglobin 11.2 L 13.3-17.7 g/dL Hematocrit 35 L 40-54 % Mean Corpuscular Volume 86 80-99 fL Mean Corpuscular Hemoglobin 28 25-34 pg Mean Corpuscular Hemoglobin Concent 32 32-36 g/dL Red Cell Distribution Width 15.0 H 10.0-14.5 % Platelet Count 265 130-400 10^3/uL Mean Platelet Volume 8.7 L 9.0-12.2 fL Immature Granulocyte % (Auto) 0 % Neutrophils (%) (Auto) 64 42-75 % Lymphocytes (%) (Auto) 27 12-44 % Monocytes (%) (Auto) 6 0-12 % Eosinophils (%) (Auto) 3 0-10 % Basophils (%) (Auto) 1 0-10 % Neutrophils # (Auto) 4.9 1.8-7.8 10^3/uL Lymphocytes # (Auto) 2.1 1.0-4.0 10^3/uL Monocytes # (Auto) 0.4 0.0-1.0 10^3/uL Eosinophils # (Auto) 0.2 0.0-0.3 10^3/uL Basophils # (Auto) 0.1 0.0-0.1 10^3/uL Immature Granulocyte # (Auto) 0.0 0.0-0.1 10^3/uL Prothrombin Time 13.3 12.2-14.7 SEC INR Comment 1.0 0.8-1.4 Activated Partial Thromboplast Time 35 24-35 SEC Sodium Level 140 135-145 MMOL/L Potassium Level 4.1 3.6-5.0 MMOL/L Chloride Level 103 98-107 MMOL/L Carbon Dioxide Level 25 21-32 MMOL/L Anion Gap 12 5-14 MMOL/L Blood Urea Nitrogen 20 H 7-18 MG/DL Creatinine 0.82 0.60-1.30 MG/DL Estimat Glomerular Filtration Rate 94 BUN/Creatinine Ratio 24 Glucose Level 91 70-105 MG/DL Calcium Level 8.9 8.5-10.1 MG/DL My Orders Orders - JACOB ASTORGA DO Basic Metabolic Panel (11/14/21 22:11) Cbc With Automated Diff (11/14/21 22:11) Protime With Inr (11/14/21 22:11) Partial Thromboplastin Time (11/14/21 22:11) Vital Signs/I&O 11/14/21 22:00 Temp 36.1 Pulse 72 Resp 16 B/P (MAP) 120/71 (87) Pulse Ox 100 O2 Delivery Room Air Capillary Refill : Less Than 3 Seconds Blood Pressure Mean: 87 Progress Note : Progress Note SUSPECT THAT HEMATURIA IS FROM THE TUBING GETTING PULLED, IT IS VERY LONG AND IS AROUND HIS FOOT. VANESSA IS DRAINING WELL AND PT DOES NOT APPEAR TO BE IN ANY DISCOMFORT, WILL LEAVE THIS CATHETER IN PLACE AND HAVE PT FOLLOW UP WITH DR. LOMBARDI. WILL CONTINUE CIPRO, PENDING URINE CULTURE RESULTS. Departure Impression Primary Impression: UTI (urinary tract infection) Additional Impressions: Hematuria Vanessa catheter in place Disposition: HOME, SELF-CARE Condition: Stable Departure-Patient Inst. Decision time for Depature: 23:00 Referrals: WADE ALEJANDRO DO (PCP/Family) Primary Care Physician LEOBARDO LOMBARDI MD Patient Instructions: Blood in Urine (Hematuria), Adult ED, How to Care for Your Vanessa Catheter, Male, Urinary Tract Infection, Adult (DC) Add. Discharge Instructions: CONTINUE CIPRO PRESCRIBED, PENDING URINE CULTURE RESULTS--YOU WILL BE CONTACTED IF YOU NEED TO SWITCH ANTIBIOTICS WHEN CULTURE RESULTS ARE BACK. ROUTINE VANESSA CARE. AVOID PULLING ON TUBING FOLLOW UP WITH DR. LOMBARDI THIS WEEK All discharge instructions reviewed with patient and/or family. Voiced understanding. JACOB ASTORGA DO Nov 14, 2021 23:02
== END 2021-11-14 23:20 | disposition home or self-care (01) ==
LOC: EDUNIT# 21:34 → ER 21:35
DX: N39.0 Urinary tract infection, site not specified (principal); Z96.0 Presence of urogenital implants
CPT/HCPCS: 36415; 80048; 85025; 85610; 85730; 99282

== ENCOUNTER 2022-03-27 05:31 | Outpatient (CLI) | payer MEDICARE, MEDICAID ==
[~2022-03-27] VITALS: Ht 170.2 cm; Wt 74.3 kg
[~2022-03-27 05:31] MED LIST changes: +AMOX1TAB12; +FURO20TA4; +TRAZ-227
[2022-03-28] MEDS ORDERED: MIRT-69 PO (10:42)
== END 2022-03-28 11:11 | disposition home or self-care (01) ==
LOC: PREOP 05:31
PROVIDERS: ATTEND Dentist General Practice
DX: Z01.818 Encounter for other preprocedural examination (principal)

== ENCOUNTER 2022-04-03 10:56 | Day surgery (SDC) | payer MEDICARE, MEDICAID ==
--- NOTE | 2022-04-02 12:51 | HISTORY AND PHYSICAL ---
CHIEF COMPLAINT: To have teeth surgery. HISTORY: By person from [facility], the patient has MR and unable to talk. ALLERGIC TO MEDICATIONS: IBUPROFEN, ORANGE JUICE. SURGERIES: Not aware of any. MEDICATIONS: Now on Benefiber, Claritin tablets 10 mg, clonazepam 1 mg, Colace, Lasix 40 mg, levothyroxine 50 mcg, melatonin 10 mg, montelukast 10 mg, Zocor 10 mg, Zoloft 50 mg, Zyprexa 15 mg. 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 REVIEW OF SYSTEMS: GENERAL: Denies fever or chills. EYES, EARS, NOSE OR THROAT: Denies diplopia, sore throat. HEART: No history of heart problems or chest pain. LUNGS: Denies cough, congestion, or wheezing. GASTROINTESTINAL: Appetite good. Denies vomiting, blood in the stools. GENITOURINARY: Able to void now. No urinary retention. PHYSICAL EXAM: GENERAL: The patient is a white male, well nourished, well developed, in no acute respiratory distress at rest. MOUTH: The patient will not open his mouth. EARS: No discharge. EYES: No conjunctivitis, ____ small below the right eye. NECK: Thyroid not enlarged. HEART: Regular rate and rhythm. LUNGS: Clear. ABDOMEN: Soft. Liver and spleen nonpalpable. Patient is okay for surgery. Blood pressure 100/70, pulse 72. Job ID: [id number] DocumentID: [id number] Dictated Date: 03/29/2022 11:27:34 Metal Model Maker Date: 03/29/2022 13:21:00 Dictated By: WADE ALEJANDRO DO
--- NOTE | 2022-04-02 13:40 | HISTORY AND PHYSICAL ---
DATE OF SERVICE: 04/03/2022 CHIEF COMPLAINT: H and P for surgery. ALLERGIC TO MEDICINES: IBUPROFEN. MEDICATIONS: The medications now on Claritin, clonazepam, Lasix p.r.n., levothyroxine, melatonin, Singulair, Proscar tablets 5 mg, trazodone 100 mg, Zocor 10 mg, Zyprexa. SURGERIES: Denies. FAMILY HISTORY: Unknown. The patient lives at [place] . REVIEW OF SYSTEMS: EYES, EARS, NOSE, THROAT: Denies any problems from person that takes care of him. HEART: No history of heart problems. LUNGS: No history of asthma, TB, coughing, congestion, or wheezing. GASTROINTESTINAL: Appetite okay. Denies blood in stools, diarrhea, or constipation. GENITOURINARY: Denies blood, pain or frequency. PHYSICAL EXAMINATION: GENERAL: The patient is a white male, well-nourished, well-developed, in no acute respiratory distress at rest. EYES, EARS, NOSE, THROAT: No conjunctivitis. The patient keeps mouth closed and does not want to open it up. Ears, no discharge. NECK: Thyroid not enlarged cervical lymphadenopathy noted. HEART: Regular rate and rhythm. LUNGS: Clear to auscultation. ABDOMEN: Soft. LIVER AND SPLEEN: Nonpalpable. EXTREMITIES: No pretibial edema. The patient is okay to have surgery. Job ID: [id number] DocumentID: [id number] Dictated Date: 04/02/2022 08:36:48 Bead Stringer Date: 04/02/2022 11:34:00 Dictated By: WADE ALEJANDRO DO
[2022-04-03] VITALS (9 sets, daily range): BP systolic 111–159; BP diastolic 61–93
[~2022-04-03] VITALS: Ht 170.2 cm; Wt 74.3 kg
[~2022-04-03 10:56] MED LIST changes: +MIRT-69 PO
[2022-04-03] MEDS ORDERED: LACTATED RINGERS 1,000 ML IV PRN (12:00)
[2022-04-03] MEDS ORDERED: ceFAZolin INJECTION 2,000 MG in NS (IVPB) 50 ML IV ONE (12:00)
--- NOTE | 2022-04-03 12:13 | Progress Note-Pre Operative ---
Pre-Operative Progress Note Date of Available H&P: Mar 19, 2022 Date H&P Reviewed: Apr 03, 2022 Time H&P Reviewed: 12:13 History & Physical: H&P Reviewed, Patient Examed, No changes noted Pre-Operative Diagnosis: skin lesion rt cheek and rt arm BIRD GARCIA DO Apr 03, 2022 12:13
[2022-04-03] MEDS ORDERED: BUP/EPI 0.5% 1:200,000 (SENSORCAINE) 30 ML VIAL ONE (12:22)
[2022-04-03] MEDS ORDERED: LIDOCAINE PF 2% 5 ML (XYLOCAINE) VIAL ONE (12:49)
[2022-04-03] MEDS ORDERED: fentaNYL INJ 100 MCG/2 ML AMP ONE (12:49)
[2022-04-03] MEDS ORDERED: proPOfol 200 MG/20 ML (DIPRIVAN) VIAL IV ONE (12:49)
[2022-04-03] MEDS ORDERED: MIDAZOLAM 2 MG/2 ML (VERSED) VIAL ONE (12:54)
[2022-04-03] MEDS ORDERED: PHENYLEPHRINE 0.5% NASAL SPR (NEO-SYNEPHRINE) REG ONE (13:01)
[2022-04-03] MEDS ORDERED: PHENYLEPHRINE 0.5% NASAL SPR (NEO-SYNEPHRINE) REG NS ONE (13:24)
[2022-04-03] MEDS ORDERED: BUP/EPI 0.25% 1:200,000 (MARCAINE) 30 ML VIAL INJ ONE (13:26)
[2022-04-03] MEDS ORDERED: BUP/EPI 0.5% 1:200,000 (SENSORCAINE) 30 ML VIAL INJ ONE (13:30)
[2022-04-03] MEDS ORDERED: MUPIROCIN 2% OINT 22 GM (BACTROBAN) TUBE ONE (15:42)
[2022-04-03] MEDS ORDERED: ROCURONIUM 50 MG/5 ML (ZEMURON) VIAL IV ONE (15:43)
[2022-04-03] MEDS ORDERED: MUPIROCIN 2% OINT 22 GM (BACTROBAN) TUBE TOP ONE (15:43)
[2022-04-03] MEDS ORDERED: ONDANSETRON 4 MG/2 ML (SDV) Z0FRAN ONE (15:43)
[2022-04-03] MEDS ORDERED: SEVOFLURANE (ULTANE) 15 ML INHAL SOLN ONE (15:47)
--- NOTE | 2022-04-03 15:51 | Discharge Inst-Simple/Standard ---
Discharge Inst-Standard Patient Instructions/Follow Up Plan of Care/Instructions/FU: Mona 7 for face sutures to be looked at and 14 days for right arm sutures to be looked at. Activity as Tolerated: Yes Discharge Diet: Regular Diet Other Inst to Patient Follow up Appt: Make appointment for7 and 14 days for sutures to be looked at for removal. Instructions: No lifting greater than 10 pounds. No strenuous activity. May shower in 24 hours, no tub bath or soaking. Use incentive spirometer at home as directed. No Smoking Skin/Wound Care: Keep areas clean and dry. Symptoms to Report: Appetite Changes, Extremity Discoloration, Numbness/Tingling, Swelling Increased, Bleeding Excessive, Eyesight Changes, Pain Increased, Urine Color Change, Constipation(Persistent), Fever over 101 degree F, Pain/Pressure in chest, Urinating Difficulty, Cough Up/Vomit Blood, Heart Beat Irreg/Pounding, Pain/Pressure in jaw, Vaginal Bleeding Increase, Cramps in feet or legs, Lightheadedness, Pain/Pressure in shoulder, Diarrhea(Persistent), Memory Changes Suddenly, Questions/Concerns, Weight gain consecutive days, Dizziness/Fainting, Nausea/Vomiting, Shortness of Breath, Weight gain over 2 pounds If questions or concerns contact your physician Or seek help at emergency department. BIRD GARCIA DO Apr 03, 2022 15:51
[2022-04-03] MEDS ORDERED: ONDANSETRON 4 MG/2 ML (SDV) Z0FRAN IVP PRN (16:00)
[2022-04-03] MEDS ORDERED: morphine INJ 10 MG/ML 1ML (SYR OR VIAL) IVP ONE (16:00)
--- NOTE | 2022-04-03 16:53 | Anesthesia-General Post-Op ---
General Patient Condition Mental Status/LOC: Same as Preop Cardiovascular: Satisfactory Nausea/Vomiting: Absent Respiratory: Satisfactory Pain: Controlled Complications: Absent Post Op Complications Complications None Follow Up Care/Instructions Patient Instructions None needed. Anesthesia/Patient Condition Patient Condition Patient is doing well and ready for discharge to home with no complaints, stable vital signs, no apparent adverse anesthesia problems. No complications reported per nursing. COLUMBA ROUSE DO Apr 03, 2022 16:53
--- NOTE | 2022-04-04 01:20 | OPERATIVE REPORT ---
DATE OF SERVICE: 04/03/2022 PREOPERATIVE DIAGNOSIS: Skin lesions, right face and right arm. POSTOPERATIVE DIAGNOSIS: Skin lesions, right face and right arm. PROCEDURE: Excision of right cheek lesion, 3.8 x 1.5 cm, and excision of right arm lesion 3 x 1.6 cm. SURGEON: Bird Dunn DO. ANESTHESIA: General. ESTIMATED BLOOD LOSS: Minimal. COMPLICATIONS: None. INDICATIONS: The patient is a 72-year-old male with a lesion on the right cheek and also right arm and has been requested these be excised. The power of county attorney understands the risks and benefits of procedure and wishes to proceed with procedure. Consent was signed and in chart. DESCRIPTION OF PROCEDURE: The patient was taken to the operating suite. He is prepped and draped in sterile fashion. Timeout was performed. Local anesthetic was infiltrated around both lesions. The right arm lesion had a 15 blade scalpel was used to make an elliptical incision measuring 3 x 1.6 cm, removing the skin and subcutaneous tissue. Hemostasis was achieved. Skin was then closed using 3-0 nylon in a simple running fashion. The right cheek, I then had a 15 blade scalpel was used to make an elliptical incision measuring 3.8 x 1.5 cm around it. Skin and subcutaneous tissues were removed. Hemostasis was achieved with cautery. Skin was then closed using 5-0 Prolene in simple interrupted fashion. The area was washed and dried and sterile bandage was applied. The patient tolerated the procedure well without any complications. The face lesion was measured and was tagged with long suture lateral and short suture superior. The patient tolerated the procedure well without complications, taken to recovery room in stable condition. The patient will have follow up arranged. Any issues to be seen at that time, otherwise follow up on regular appointments. Job ID: [id number] DocumentID: [id number] Dictated Date: 04/03/2022 15:53:23 Balance Staff Inspector Date: 04/04/2022 01:20:00 Dictated By: BIRD DUNN DO
--- NOTE | 2022-04-04 14:01 | OPERATIVE REPORT ---
DATE OF SERVICE: 04/03/2022 PREOPERATIVE DIAGNOSIS: Dental caries. POSTOPERATIVE DIAGNOSIS: Dental caries. OPERATION PERFORMED: Repair of numerous caries teeth utilizing stainless steel crown application and placement of composite resin. DESCRIPTION OF PROCEDURE: The patient was treated on an outpatient basis and following suitable premedication, was taken to the operating room and placed in a supine position upon the table. Anesthesia was then induced, nasotracheal intubation was accomplished and general anesthesia was administered. A throat pack consisting of one wet 4 x 4 gauze, sponge was placed in the oropharynx and maintained in place throughout the procedure, mouth opening was maintained at all time with simple digital pressure. No mechanical retractors of any kind were utilized. Caries was removed from teeth #5 and 28. Following that stainless steel crowns were placed and cemented over those teeth. Caries was removed from teeth #7, 8, 9, 11, 12, 22, 23, 24, 25 and 26 and then those teeth were restored subsequently with composite resin. The patient tolerated this procedure quite nicely and following a thorough debridement of the oral cavity with copious sterile water, adequate suction and compressed air. The throat pack was removed. The patient was extubated and taken to recovery in quite satisfactory condition. Job ID: [id number] DocumentID: [id number] Dictated Date: 04/04/2022 08:50:50 Household Appliances Salesperson Date: 04/04/2022 14:00:00 Dictated By: VALENCIA ATKINS DDS
== END 2022-04-03 17:45 | disposition home or self-care (01) ==
LOC: SDC 10:56
PROVIDERS: ATTEND Dentist General Practice
DX: K02.9 Dental caries, unspecified (principal); D23.61 Other benign neoplasm of skin of right upper limb, including shoulder; C76.0 Malignant neoplasm of head, face and neck; D22.30 Melanocytic nevi of unspecified part of face; R22.32 Localized swelling, mass and lump, left upper limb; M89.8X2 Other specified disorders of bone, upper arm; Z28.310 Unvaccinated for COVID-19
CPT/HCPCS: 87081; 88305; 88342; 88344

== ENCOUNTER 2022-05-21 05:29 | Outpatient (CLI) | payer MEDICARE, MEDICAID ==
[~2022-05-21] VITALS: Ht 170.2 cm; Wt 71.2 kg
== END 2022-05-22 14:18 | disposition home or self-care (01) ==
LOC: PREOP 05:29
PROVIDERS: ATTEND Surgery
DX: Z01.818 Encounter for other preprocedural examination (principal)

== ENCOUNTER 2022-05-25 07:00 | Day surgery (SDC) | payer MEDICARE, MEDICAID ==
[2022-05-25] VITALS (9 sets, daily range): BP systolic 122–154; BP diastolic 78–91
[~2022-05-25] VITALS: Ht 170.2 cm; Wt 71.2 kg
[2022-05-25] MEDS ORDERED: ceFAZolin INJECTION 2,000 MG in NS (IVPB) 50 ML IV ONE (07:15)
[2022-05-25] MEDS ORDERED: LACTATED RINGERS 1,000 ML IV PRN (07:30)
[2022-05-25] MEDS ORDERED: BUP/EPI 0.5% 1:200,000 (SENSORCAINE) 30 ML VIAL ONE (07:43)
[2022-05-25] MEDS ORDERED: proPOfol 200 MG/20 ML (DIPRIVAN) VIAL IV ONE (08:02)
[2022-05-25] MEDS ORDERED: LIDOCAINE PF 2% 5 ML (XYLOCAINE) VIAL ONE (08:02)
--- NOTE | 2022-05-25 08:03 | Progress Note-Pre Operative ---
Pre-Operative Progress Note Date of Available H&P: May 07, 2022 Date H&P Reviewed: May 25, 2022 Time H&P Reviewed: 08:02 History & Physical: H&P Reviewed, Patient Examed, No changes noted Pre-Operative Diagnosis: Melanoma of R danielleek BIRD GARCIA D DO May 25, 2022 08:03
[2022-05-25] MEDS ORDERED: BSS 15 ML ONE (08:22)
[2022-05-25] MEDS ORDERED: BSS 15 ML IO ONE (08:31)
[2022-05-25] MEDS ORDERED: BUP/EPI 0.5% 1:200,000 (SENSORCAINE) 30 ML VIAL INJ ONE (08:32)
[2022-05-25] MEDS ORDERED: ONDANSETRON 4 MG/2 ML (SDV) Z0FRAN ONE (08:48)
[2022-05-25] MEDS ORDERED: SEVOFLURANE (ULTANE) 15 ML INHAL SOLN ONE (08:57)
--- NOTE | 2022-05-25 09:05 | Anesthesia-General Post-Op ---
General Patient Condition Mental Status/LOC: Same as Preop Cardiovascular: Satisfactory Nausea/Vomiting: Absent Respiratory: Satisfactory Pain: Controlled Complications: Absent Post Op Complications Complications None Follow Up Care/Instructions Patient Instructions None needed. Anesthesia/Patient Condition Patient Condition Patient is doing well, no complaints, stable vital signs, no apparent adverse anesthesia problems. No complications reported per nursing. AYDEE ALANIZ CRNA May 25, 2022 09:05
[2022-05-25] MEDS ORDERED: morphine INJ 10 MG/ML 1ML (SYR OR VIAL) IVP ONE (09:15)
[2022-05-25] MEDS ORDERED: ONDANSETRON 4 MG/2 ML (SDV) Z0FRAN IVP PRN (09:15)
[2022-05-25] MEDS ORDERED: PROMETHAZINE INJ 25 MG/ML (PHENERGAN) AMP IVP ONE (09:15)
--- NOTE | 2022-05-25 09:19 | Discharge Inst-Simple/Standard ---
Discharge Inst-Standard Patient Instructions/Follow Up Plan of Care/Instructions/FU: 2 weeks Mona Activity as Tolerated: No Discharge Diet: No Restrictions BIRD GARCIA DO May 25, 2022 09:19
--- NOTE | 2022-05-25 16:28 | OPERATIVE REPORT ---
DATE OF SERVICE: 05/25/2022 PREOPERATIVE DIAGNOSIS: Melanoma, right cheek. POSTOPERATIVE DIAGNOSIS: Melanoma, right cheek. PROCEDURE: Excision melanoma, right cheek, 4.5 x 1.4 cm. SURGEON: Bird Dunn DO ANESTHESIA: General. ESTIMATED BLOOD LOSS: Minimal. COMPLICATIONS: None. INDICATIONS: The patient is a 72-year-old male with a melanoma that was excised. The borders were positive. Also, I had discussed with power of attorneys whether to do sentinel lymph node, which they did not wish to proceed with. They only wished to proceed with reexcision. Consent was signed in chart. DESCRIPTION OF PROCEDURE: The patient was taken to the operating suite where he was prepped and draped in sterile fashion. Timeout was performed. Local anesthetic was infiltrated around the old scar. A #15 blade scalpel was used to make an incision in elliptical fashion, 4.5 x 1.4 cm. Skin and subcutaneous tissue was removed. Hemostasis was achieved. The skin was then closed using 5-0 Prolene in simple interrupted fashion. The specimen was tagged short suture superior, long suture lateral. The area was then washed and dried. The patient tolerated the procedure well without complications, taken to recovery room in stable condition. Job ID: [id number] DocumentID: [id number] Dictated Date: 05/25/2022 10:31:33 Rn Security Date: 05/25/2022 16:26:00 Dictated By: BIRD DUNN DO
== END 2022-05-25 10:39 ==
LOC: SDC 07:00
PROVIDERS: ATTEND Surgery
DX: C76.0 Malignant neoplasm of head, face and neck (principal)
CPT/HCPCS: 87081; 88305

== ENCOUNTER 2022-06-18 08:47 | Emergency (ER) | payer MEDICARE, MEDICAID ==
[~2022-06-18] VITALS: Ht 170.2 cm; Wt 87.5 kg
--- NOTE | 2022-06-18 09:08 | ED EENT ---
History of Present Illness General Chief Complaint: Ear Problems Stated Complaint: RIGHT EAR SWELLING Nursing Triage Note: PT AMB TO [facility] 6 WITH CAREGIVER WITH COMPLAINT OF RIGHT EAR SWELLING AND BRUISING. CAREGIVER STATES THE SWELLING STARTED LAST NIGHT, BUT HAS PROGRESSIVELY WORSENED. STATES PT RECENTLY HAD MELANOMA CUT OFF OF FACE. DENIES INJURY OR FALL. STATES PT HAS NOT ACTED IN PAIN. PT IS [place] RESIDENT. Source: patient Exam Limitations: no limitations History of Present Illness Date Seen by Provider: Jun 18, 2022 Time Seen by Provider: 09:08 Initial Comments Patient is a 72-year-old male from [place], intellectually disabled with his caregiver who presents with right ear swelling. Patient has significant edema of the upper portion of the ear with ecchymosis consistent with "cauliflower ea r". Staff apparently noticed it last night and it is continued to swell. He is not complaining of any pain and has not exhibited any signs of distress. Is not on blood thinners. HPI review of systems severely limited from the patient secondary to his intellectual disability. Timing/Duration: abrupt Location: ear (R) Prearrival Treatment: no prearrival treatment Allergies and Home Medications Allergies Coded Allergies: ibuprofen (Verified Allergy, Mild, 05/25/22) Patient Home Medication List Home Medication List Reviewed: Yes Acetaminophen (Tylenol) 325 Mg Capsule, 650 MG PO Q4H PRN for PAIN-MILD (1-4) OR TEMPATURE, (Reported) Entered as Reported by: FREDERIC FISCHER on 05/17/21 154 Calcium Carbonate (Tums [place]) 200 Mg Tab.chew, 500 MG PO UD PRN for INDIGESTION, (Reported) Entered as Reported by: FREDERIC FISCHER on 05/17/21 154 Clonazepam (Clonazepam) 1 Mg Tablet, 0.05 MG PO QID, (Reported) Entered as Reported by: FREDERIC FISCHER on 05/17/21 154 Docusate Sodium (Docusate Sodium) 100 Mg Capsule, 200 MG PO HS PRN for CONSTIPATION-1ST LINE, (Reported) Entered as Reported by: FREDERIC FISCHER on 05/17/21 154 Finasteride (Finasteride) 5 Mg Tablet, 5 MG PO HS, (Reported) Entered as Reported by: FREDERIC FISCHER on 05/17/21 154 Furosemide (Furosemide) 20 Mg Tablet, (Reported) Entered as Reported by: DAMIAN MARAVILLA on 11/14/212205 Guaifenesin/Dextromethorphan (Guaifenesin Dm Syrup) 5 Ml Syrup, 10 ML PO Q6H PRN for COUGH, (Reported) Entered as Reported by: FREDERIC FISCHER on 05/17/211544 Hydrocortisone (Cortizone-10) 28 Gm Cream..g., 1 APPLIC TP Q8H PRN for RASH, (Reported) Entered as Reported by: FREDERIC FISCHER on 05/17/211544 Levofloxacin (Levofloxacin) 250 Mg Tablet, 250 MG PO DAILY Prescribed by: KATHY KAHN on 06/18/22 1049 Levothyroxine Sodium (Levothyroxine Sodium) 50 Mcg Tablet, 50 MCG PO DAILY, (Reported) Entered as Reported by: FREDERIC FISCHER on 05/17/211544 Loperamide HCl (Imodium A-D) 2 Mg Capsule, 2-4 MG PO UD PRN for DIARRHEA, (Reported) Entered as Reported by: FREDERIC FISCHER on 05/17/211544 Loratadine (Loratadine) 10 Mg Tablet, 10 MG PO DAILY, (Reported) Entered as Reported by: FREDERIC FISCHER on 05/17/211544 Magnesium Hydroxide (Milk of Magnesia) 400 Mg/5 Ml Oral.susp, 30 ML PO Q12H PRN for CONSTIPATION-7TH LINE, (Reported) Entered as Reported by: FREDERIC FISCHER on 05/17/211544 Melatonin (Melatonin) 10 Mg Tablet, 10 MG PO HS, (Reported) Entered as Reported by: FREDERIC FISCHER on 05/17/211544 Mirtazapine (Mirtazapine) 30 Mg Tablet, 30 MG PO DAILY, (Reported) Entered as Reported by: ELENA XIONG on 03/28/22 104 Montelukast Sodium (Montelukast Sodium) 10 Mg Tablet, 10 MG PO HS, (Reported) Entered as Reported by: FREDERIC FISCHER on 05/17/21 154 Olanzapine (Olanzapine) 10 Mg Tablet, 10 MG PO DAILY, (Reported) Entered as Reported by: FREDERIC FISCHER on 05/17/21 154 Polyethylene Glycol 3350 (Lpt2746) 238 Gm Powder, 17 GM PO DAILY, (Reported) Entered as Reported by: FREDERIC FISCHER on 05/17/211544 Sertraline HCl (Sertraline HCl) 50 Mg Tablet, 50 MG PO HS, (Reported) Entered as Reported by: FREDERIC FISCHER on 05/17/211544 Simvastatin (Simvastatin) 10 Mg Tablet, 10 MG PO HS, (Reported) Entered as Reported by: FREDERIC FISCHER on 05/17/211544 Tetrahydrozoline HCl (Tetrahydrozoline HCl) 15 Ml Drops, 2 DROP OU Q6H PRN for DRY EYES, (Reported) Entered as Reported by: FREDERIC FISCHER on 05/17/211544 Wheat Dextrin (Benefiber) 1 Each Powd.pack, 1 EACH PO DAILY PRN for CONSTIPATION, (Reported) Entered as Reported by: FREDERIC FISCHER on 05/17/211544 Review of Systems Review of Systems Constitutional: see HPI Other Limited from patient due to intellectual disability Past Qwalccg-Gyuwmg-Mlyiat Hx Patient Social History Tobacco Use?: No Use of E-Cig and/or Vaping dev: No Substance use?: No Alcohol Use?: No Pt feels they are or have been: No Immunizations Up To Date Tetanus Booster (TDap): Unknown First/Initial COVID19 Vaccinat: 04/08/20 Second COVID19 Vaccination Kvng: 05/06/20 Third COVID19 Vaccination Date: 04/08/20 Seasonal Allergies Seasonal Allergies: Yes Past Medical History Surgery/Hospitalization HX: pmh:urine retention, high chol, depression, anxiety, mental retardation Surgeries: Yes (DENTAL, right check melonoma) Respiratory: Yes Asthma Currently Using CPAP: No Currently Using BIPAP: No Cardiac: Yes High Cholesterol Neurological: Yes (Intellectual disability; SEVERE MR AND IS NON-VERBAL) Developmental Disorder Genitourinary: Yes (Urinary retention-CHRONIC VANESSA CATHETER , HX) Prostate Problems Gastrointestinal: No Musculoskeletal: No Endocrine: Yes Hypothyroidsim HEENT: No Cancer: No Did You Recieve Any Treatments: No Psychosocial: Yes Sleep Difficulties, Anxiety, Depression Integumentary: No Blood Disorders: No Physical Exam Vital Signs Vital Signs - First Documented 06/18/22 08:55 Temp 37.0 Pulse 96 Resp 16 B/P (MAP) 124/87 (99) Pulse Ox 99 O2 Delivery Room Air Height, Weight, BMI Height: '" Weight: lbs. oz. kg; 30.00 BMI Method:Stated General Appearance: WD/WN, no apparent distress Eyes: bilateral eye normal inspection Ears: right ear swelling ("Cauliflower ear"), right ear tenderness Nose: normal inspection Neck: normal inspection Cardiovascular: regular rate, rhythm Respiratory: lungs clear, normal breath sounds, no respiratory distress, no accessory muscle use Neurologic/Psychiatric: alert Skin: normal color, warm/dry, other (Ecchymosis right ear, swelling) Procedures/Interventions I&D : Blade Size: 11 I & D Procedure: betadine prep Progress copious hematoma revmoved. 750ml Sterile saline irrigation. one 5-0 vicryl stitch placed Progress/Results/Core Measures Results/Orders My Orders Orders - KATHY KAHN MD Lidocaine/Epi 2% 1:100,000 (Xylocaine/Ep (06/18/22 09:30) Lidocaine/Epi Mpf 2% 1:200,000 (Xylocain (06/18/22 09:53) Levofloxacin Tablet (Levaquin Tablet) (06/18/22 11:45) Hydrocodone/Apap 5/325 Tablet (Lortab 5 (06/18/22 11:45) Medications Given in ED Current Medications Medications Dose Ordered Sig/Lauren Route Start Time Stop Time Status Last Admin Dose Admin Lidocaine/ Epinephrine 20 ml STK-MED ONCE .ROUTE 06/18/22 09:53 06/18/22 09:58 DC 06/18/22 09:58 20 ML Vital Signs/I&O 06/18/22 08:55 Temp 37.0 Pulse 96 Resp 16 B/P (MAP) 124/87 (99) Pulse Ox 99 O2 Delivery Room Air Blood Pressure Mean: 99 Departure Impression Primary Impression: Hematoma of auricle Qualified Codes: S00.431A - Contusion of right ear, initial encounter Disposition: HOME, SELF-CARE Condition: Improved Departure-Patient Inst. Decision time for Depature: 11:48 Referrals: WADE ALEJANDRO DO (PCP/Family) Primary Care Physician Add. Discharge Instructions: Keep the pressure dressing in place until follow-up with Dr. Alejandro. He will need to see him or Saturday. Antibiotics, Levaquin 250 mg tablets once daily for a total of 10 days. Hydrocodone 5 mg tablets 1 every 6 hours as needed for pain. If he starts to run a fever please bring him back to the emergency department. The suture that was placed today will dissolve over time. Return to the emergency department for any new, concerning or emergent complaints. Scripts Hydrocodone/Acetaminophen (Hydrocodone-Acetamin 5-325 mg) 5 Mg-325 Mg Tablet 1 TAB PO Q6H PRN for PAIN-MODERATE (5-7), #15 TAB Prov: KATHY KAHN MD 06/18/22 Levofloxacin (Levofloxacin) 250 Mg Tablet 250 MG PO DAILY for 9 Days, #9 TAB Prov: KATHY KAHN MD 06/18/22 Copy Copies To 1: WADE ALEJANDRO KATHRYN M MD Jun 18, 2022 09:08
[2022-06-18] MEDS ORDERED: LIDOCAINE/EPI 2% 1:100,00 (XYLOCAINE) 20 ML VIAL INJ ONE (09:30)
[2022-06-18] MEDS ORDERED: LIDOCAINE/EPI 2% 1:200,00 (XYLOCAINE) 20 ML VIAL ONE (09:53)
[2022-06-18] MEDS ORDERED: LEVO250T66 PO ×2 (10:49→11:51)
[2022-06-18] MEDS ORDERED: HYDROcodone/APAP 5 MG/325 MG (LORTAB) TAB PO ONE (11:45)
[2022-06-18] MEDS ORDERED: ACHD5005 PO (11:51)
[2022-06-18 12:06] VITALS: BP 124/87
== END 2022-06-18 12:06 | disposition home or self-care (01) ==
LOC: EDUNIT# 08:47 → ER 08:47
DX: H61.121 Hematoma of pinna, right ear (principal); F79 Unspecified intellectual disabilities; Z85.820 Personal history of malignant melanoma of skin; Z88.6 Allergy status to analgesic agent
CPT/HCPCS: 10160

== ENCOUNTER → 2022-08-09 | Outpatient (CLI) | payer MEDICARE, MEDICAID ==
[~2022-08-09] MED LIST changes: +ACHD5005 PO; +LEVO250T66 PO
--- NOTE | 2022-08-09 16:56 | Diagnostic Imaging Report ---
Indication: Redness and swelling in the 4th toe. Time of Exam: 1:03 PM 3 views of the right foot were obtained. The metatarsals are intact. Phalanges appear to be intact. No fractures are seen. Midfoot and hindfoot are unremarkable. Soft tissues are unremarkable. Impression: No acute bony abnormality is detected. Dictated by: Dictated on workstation # [id number]
== END ==
LOC: RAD 12:42
PROVIDERS: ATTEND Family Medicine
DX: R22.41 Localized swelling, mass and lump, right lower limb (principal)
CPT/HCPCS: 73630